=== PATIENT | male | born 1955 | race Caucasian/White ===

== ENCOUNTER 2016-11-18 16:01 | Emergency (ER) | payer MEDICARE ==
[2016-11-18] MEDS ORDERED: NORMAL SALINE 1000 ML 1,000 ML IV ONE ×3 (16:44→20:21)
--- NOTE | 2016-11-18 16:50 | ER Document Report ---
ED Medical Screen (RME) - General Chief Complaint: High Blood Sugar Stated Complaint: BLOOD SUGAR PROBLEM Mode of Arrival: Wheelchair Information source: Patient Notes: 61-year-old male presents to the emergency department complaining of elevated blood glucose. Reports history of type 2 NIDDM. States was referred by primary care provider for blood sugar of 680. Reports associated blurred vision and thirst. Denies chest pain or shortness of breath. I have greeted and performed a rapid initial assessment of this patient. A comprehensive ED assessment and evaluation of the patient, analysis of test results and completion of the medical decision making process will be conducted by additional ED providers. TRAVEL OUTSIDE OF THE [place] IN LAST 30 DAYS: No - Related Data Allergies/Adverse Reactions: No Known Allergies Allergy (Verified 11/18/16 16:35) Past Medical History - Social History Chew tobacco use (# tins/day): No Frequency of alcohol use: None Drug Abuse: None Renal/ Medical History: Reports: Hx Kidney Stones. Denies: Hx Peritoneal Dialysis - Immunizations Hx Diphtheria, Pertussis, Tetanus Vaccination: Yes Physical Exam - Vital signs Vitals: Temp Pulse Resp BP Pulse Ox 97.7 F 86 18 118/60 94 11/18/16 16:30 11/18/16 16:30 11/18/16 16:30 11/18/16 16:30 11/18/16 16:30 - General General appearance: Alert In distress: None - Respiratory Respiratory status: No respiratory distress Course - Vital Signs Vital signs: Temp Pulse Resp BP Pulse Ox 97.7 F 86 18 118/60 94 11/18/16 16:30 11/18/16 16:30 11/18/16 16:30 11/18/16 16:30 11/18/16 16:30
[2016-11-18 17:41] LABS: ABSOLUTE LYMPHOCYTES (AUTO) 1.8 10^3/uL (0.5-4.7); ABSOLUTE MONOCYTES (AUTO) 0.5 10^3/uL (0.1-1.4); ABSOLUTE NEUT (AUTO) 13.4 10^3/uL (1.7-8.2); BASOPHILS % (AUTO) 0.3 % (0-2); HEMATOCRIT 37.7 % (37.9-51.0); HEMOGLOBIN 12.3 g/dL (13.5-17.0); HGB HCT DIFFERENCE -0.8; LYMPHOCYTES % (AUTO) 11.3 % (13-45); MEAN CORPUSCULAR HEMOGLOBIN 29.8 pg (27.0-33.4); MEAN CORPUSCULAR HGB CONC 32.7 g/dL (32.0-36.0); MEAN CORPUSCULAR VOLUME 91 fl (80-97); MONOCYTES % (AUTO) 3.4 % (3-13); RED BLOOD COUNT 4.13 10^6/uL (4.35-5.55); RED CELL DISTRIBUTION WIDTH 16.2 % (11.5-14.0); WHITE BLOOD COUNT 15.8 10^3/uL (4.0-10.5)
[2016-11-18 17:46] LABS: VENOUS BLOOD HCO3 23.5 mmol/L (20-32); VENOUS BLOOD PH 7.36 (7.30-7.42)
--- NOTE | 2016-11-18 18:01 | EKG REPORT ---
SEVERITY:- ABNORMAL ECG - SINUS RHYTHM RIGHT BUNDLE BRANCH BLOCK : Confirmed by: Maricel Eubanks 18-Nov-2016 18:00:06
[2016-11-18 18:02] LABS: ALANINE AMINOTRANSFERASE 36 U/L (21-72); ALBUMIN 3.8 g/dL (3.5-5.0); ALKALINE PHOSPHATASE 127 U/L (38-126); ANION GAP 16 (5-19); ASPARTATE AMINO TRANSFERASE 17 U/L (17-59); BILIRUBIN,TOTAL 1.9 mg/dL (0.2-1.3); BLOOD UREA NITROGEN 35 mg/dL (7-20); CALCIUM 9.8 mg/dL (8.4-10.2); CARBON DIOXIDE 24 mmol/L (22-30); CHLORIDE 90 mmol/L (98-107); CREATININE RESULT 1.56 mg/dL (0.52-1.25); POTASSIUM 4.5 mmol/L (3.6-5.0); SODIUM 130.1 mmol/L (137-145); TOTAL PROTEIN 6.5 g/dL (6.3-8.2)
--- NOTE | 2016-11-18 18:10 | ER Document Report ---
[id number] [id number] BLOOD SUGAR PROBLEM Mode of Arrival: Wheelchair Notes: The patient is a 61-year-old male, past medical history on chronic steroids for viral meningitis in 1999, presents from his primary care physician's office after his blood sugar was found to be in the 600s. Patient is not on any diabetes medication. He is having polyuria and polydipsia. Denies chest pain, shortness of breath, fevers, rash, abdominal pain, diarrhea, constipation, nausea, vomiting or dysuria. TRAVEL OUTSIDE OF THE [place] IN LAST 30 DAYS: No - Related Data Allergies/Adverse Reactions: No Known Allergies Allergy (Verified 11/18/16 16:35) Past Medical History - General Information source: Patient - Social History Smoking Status: Never Smoker Chew tobacco use (# tins/day): No Frequency of alcohol use: None Drug Abuse: None Family History: Reviewed & Not Pertinent Patient has suicidal ideation: No Patient has homicidal ideation: No Renal/ Medical History: Reports: Hx Kidney Stones. Denies: Hx Peritoneal Dialysis - Immunizations Hx Diphtheria, Pertussis, Tetanus Vaccination: Yes Review of Systems - Review of Systems Notes: REVIEW OF SYSTEMS: CONSTITUTIONAL: -fevers, -chills EENT: -eye pain, -difficulty swallowing, -nasal congestion CARDIOVASCULAR:-chest pain, -syncope. RESPIRATORY: -cough, -SOB GASTROINTESTINAL: -abdominal pain, -nausea, -vomiting, -diarrhea GENITOURINARY: -dysuria, -hematuria, +polyuria MUSCULOSKELETAL: -back pain, -neck pain SKIN: -rash or skin lesions. HEMATOLOGIC: -easy bruising or bleeding. LYMPHATIC: -swollen, enlarged glands. NEUROLOGICAL: -altered mental status or loss of consciousness, -headache, - neurologic symptoms PSYCHIATRIC: -anxiety, -depression. ALL OTHER SYSTEMS REVIEWED AND NEGATIVE. Physical Exam - Vital signs Vitals: Temp Pulse Resp BP Pulse Ox 97.7 F 86 18 118/60 94 11/18/16 16:30 11/18/16 16:30 11/18/16 16:30 11/18/16 16:30 11/18/16 16:30 - Notes Notes: PHYSICAL EXAMINATION: GENERAL: Well-appearing, well-nourished and in no acute distress. HEAD: Atraumatic, normocephalic. EYES: Pupils equal round and reactive to light, extraocular movements intact, sclera anicteric, conjunctiva are normal. ENT: nares patent, oropharynx clear without exudates. Dry mucous membranes. NECK: Normal range of motion, supple without lymphadenopathy LUNGS: Breath sounds clear to auscultation bilaterally and equal. No wheezes rales or rhonchi. HEART: Regular rate and rhythm without murmurs ABDOMEN: Soft, nontender, normoactive bowel sounds. No guarding, no rebound. No masses appreciated. EXTREMITIES: Normal range of motion, no pitting or edema. No cyanosis. NEUROLOGICAL: Cranial nerves grossly intact. Normal speech, normal gait. Normal sensory, motor, and reflex exams. PSYCH: Normal mood, normal affect. SKIN: Warm, Dry, normal turgor, no rashes or lesions noted. Course - Re-evaluation Re-evalutation: The patient has hyperglycemia without any evidence of ketoacidosis. This is new onset and most likely caused by his chronic steroid use and recent URI. No signs of infection at this time. Creatinine is at baseline. 11/18/16 19:24 Attempted to call his primary care physician HANNAH Gil , but no answer at this time. 11/18/16 20:03 After 2L NS, patient's blood sugar decreased from 599 to 504. He is tolerating fluids. Will give him another liter of IVF and IV insulin, but he does not want anymore IV fluids, even after explaining that he should. His repeat accucheck is 441. This hyperglycemia is most likely chronic in nature. Will begin patient on glipizide and have him f/u at his PMD for medication adjustment. - Vital Signs Vital signs: Temp Pulse Resp BP Pulse Ox 97.7 F 86 18 118/60 94 11/18/16 16:30 11/18/16 16:30 11/18/16 16:30 11/18/16 16:30 11/18/16 16:30 11/18/16 19:23 - Laboratory Result Diagrams: 11/18/16 17:31 11/18/16 17:31 Laboratory results interpreted by me: 11/18/16 11/18/16 11/18/16 17:31 17:31 18:14 WBC 15.8 H RBC 4.13 L Hgb 12.3 L Hct 37.7 L RDW 16.2 H Seg Neutrophils % 85.0 H Lymphocytes % 11.3 L Absolute Neutrophils 13.4 H Sodium 130.1 L Chloride 90 L BUN 35 H Creatinine 1.56 H Est GFR ( Amer) 55 L Est GFR (Non-Af Amer) 45 L Glucose 599 H* Total Bilirubin 1.9 H Alkaline Phosphatase 127 H Urine Glucose (UA) >=500 H Urine Ketones 20 H Urine Blood SMALL H Ur Leukocyte Esterase LARGE H - EKG Interpretation by Me EKG shows normal: Sinus rhythm, [place], QRS Complexes, ST-T Waves [place]/QRS: RBBB When compared to previous EKG there are: No significant change Discharge - Discharge Clinical Impression: Hyperglycemia Condition: Stable Disposition: HOME, SELF-CARE Additional Instructions: He must have your blood sugar rechecked by her primary care physician and possible medication adjustments. Drink plenty of water. If you're unable to stay hydrated, return to the emergency room. HYPERGLYCEMIA (HIGH BLOOD SUGAR): You have an abnormally high blood sugar. Not all high blood sugar requires long-term treatment. High blood sugar can be due to medications, , or the stress of illness. (These cases are "borderline diabetes.") If the doctor feels your high blood sugar might resolve with time, you may not require treatment now. It's very important that you follow through, to see if the blood sugar returns to normal levels. Uncontrolled high blood sugar leads to early heart disease, strokes, nerve damage, eye damage, and kidney damage. Call the physician if there is faintness, excess sleepiness, or very rapid breathing. DIABETES: You have an abnormally high blood sugar, suspicious for diabetes. Not all high blood sugar requires long-term treatment. High blood sugar can be due to medications, , or the stress of illness. (These cases are "borderline diabetes.") If the doctor feels your high blood sugar might get better with time, you may not require treatment now. It's very important that you follow through. Uncontrolled high blood sugar leads to early heart disease, strokes, nerve damage, eye damage, and kidney damage. All diabetics should follow a diet designed to control the blood sugar. Overweight diabetics should exercise regularly and lose weight. If this is not sufficient to control the blood sugar, pills or insulin shots are necessary. Younger people who develop diabetes almost always require insulin daily. Home testing of blood sugars or urine sugar is required. Diabetic teaching is available to help you figure insulin doses and monitor the blood sugar. Call the physician if there is faintness, excess sleepiness, or very rapid breathing. If hypoglycemia (LOW blood sugar) develops, symptoms are shakiness, weakness, sweating, and confusion. In this case, you should eat or drink something with sugar at once. ORAL HYPOGLYCEMIC MEDICATION: Oral hypoglycemics are medicines that lower blood sugar in diabetics. They are not effective for younger diabetics who require insulin. Some brands are tolbutamide, Orinase, glipizide, Glucotrol, glyburide, DiaBeta, Glynase, and Micronase. Some medications can increase or decrease the effect of Diabinese. Examples are Clofibrate (Atromid-S), phenylbutazone (Butazolidin), aspirin, sulfonamides, Coumadin, allopurinol (Zyloprim), probenecid (Benemid), acetazolamide (Diamox), beta blockers, steroids, estrogens, Indocin, INH, Levothyroxine, nicotinic acid, Diflucan, Dilantin, and thiazide diuretics. Be sure your doctor knows all the medicines you take, and talk to your doctor before making any changes in your medicines. If you develop symptoms of shakiness, sweats, and lightheadedness, your blood sugar may have gone too low. Eat or drink a small amount of sweet food. If symptoms don't go away, call your doctor. FOLLOW-UP CARE: If you have been referred to a physician for follow-up care, call the physician s office for an appointment as you were instructed or within the next two days. If you experience worsening or a significant change in your symptoms, notify the physician immediately or return to the Emergency Department at any time for re-evaluation. Prescriptions: Glipizide [Glipizide ER] 5 mg PO DAILY #30 tab.er.24 Referrals: NOAM MENDEZ NP [Primary Care Provider] - Follow up as needed
[2016-11-18 18:11] LABS: GLUCOSE 599 mg/dL (75-110)
[2016-11-18 18:26] LABS: APPEARANCE,URINE CLEAR; BILIRUBIN,URINE NEGATIVE (NEGATIVE); GLUCOSE, URINE >=500 mg/dL (NEGATIVE); KETONES,URINE 20 mg/dL (NEGATIVE); LEUKOCYTE ESTERASE,URINE LARGE (NEGATIVE); NITRITE,URINE NEGATIVE (NEGATIVE); PROTEIN,URINE NEGATIVE (NEGATIVE); URINE SPECIFIC GRAVITY 1.011; UROBILINOGEN,URINE NEGATIVE mg/dL (<2.0)
[2016-11-18] MEDS ORDERED: INSULIN REG, HUMAN 100 UNIT/ML 3 ML VIAL (PYX) IV ONE (19:26)
[2016-11-18] MEDS ORDERED: CEFTRIAXONE INJ 1000 MG VIAL IV ONE (21:23)
[2016-11-19 03:50] VITALS: BP 115/65
== END 2016-11-19 03:25 | disposition home or self-care (01) ==
LOC: ER 16:01
DX: E11.65 Type 2 diabetes mellitus with hyperglycemia (principal); N39.0 Urinary tract infection, site not specified; R35.8 Other polyuria; R63.1 Polydipsia; I45.10 Unspecified right bundle-branch block
CPT/HCPCS: 93005; 99285; 96361; 96365; 36415; 82962; 85025; 80053; 81001; 82803; 93010; J0696; J7030; J1815

== ENCOUNTER 2018-03-20 09:56 | Day surgery (SDC) | payer MEDICARE ==
[~2018-03-20 09:56] MED LIST: BUPIVACAINE HCL 0.75% INJ/PF (7.5 MG/1 ML) 10 ML SDV OS PRN; KETOROLAC TROMETHAMINE 0.45% 4 DROP/0.4 ML DROPERETTE OS PRN; LIDOCAINE 4% INJ/PF (40 MG/ML) 5 ML AMPUL OS PRN
[2018-03-20] MEDS ORDERED: EPINEPHRINE INJ/PF 1 MG/1 ML AMPULE ONE (10:18)
[2018-03-20] MEDS ORDERED: CHONDR SU A NA/HYALUR INTRAOC KIT (SURGICARE) ONE (10:19)
[2018-03-20] MEDS ORDERED: LIDOCAINE 1% INJ-PF (10 MG/ML) 30 ML SDV ONE (10:19)
[2018-03-20] MEDS: TETRACAINE HCL 0.5% OPH SOLN 0.6 ML DROPERETTE OS PRN ×2 (10:55→11:22)
[2018-03-20] MEDS: TROPICAMIDE 1% OPH SOLN 3 ML OS PRN ×3 (10:56→11:21)
[2018-03-20] MEDS: BESIFLOXACIN HCL 0.6% OPH SUSP 5 ML BOTTLE OS PRN ×3 (10:56→12:07)
[2018-03-20] MEDS: CYCLOPENTOLATE 0.2%/PHENYLEPHRINE 1% OPH SOLN 2 ML OS PRN ×3 (10:56→11:21)
[2018-03-20] MEDS ORDERED: MIDAZOLAM 2 MG/2 ML INJ ONE ×2 (11:11→12:13)
[2018-03-20] MEDS ORDERED: FENTANYL CITRATE INJ/PF 100 MCG/2 ML AMPUL ONE ×2 (11:12→11:35)
--- NOTE | 2018-03-20 17:15 | [facility] OPERATIVE REPORT E ---
[facility] Operative Report NAME: MARY MEDINA AGE: 63Y DATE OF SURGERY: 03/20/2018 ROOM: PREOPERATIVE DIAGNOSIS: CATARACT, LEFT EYE. POSTOPERATIVE DIAGNOSIS: CATARACT, LEFT EYE. OPERATION: Phacoemulsification with posterior chamber intraocular lens, left eye. SURGEON: STARLA JONES M.D. ANESTHESIA: Topical with MAC. INDICATIONS FOR SURGERY: Difficulty driving and reading. Best corrected visual acuity, 20/70. PROCEDURE: The patient was brought to the Operating Room and placed on the operative table. Following tetracaine drops, topical anesthesia was administered. This consisted of instrument wipe pledgets soaked in a solution of 4% Xylocaine mixed with 0.75% Marcaine in a 1:2 ratio. A 2 x 1 cm pledget was placed in the superior fornix. A 1 x 1 cm pledget was placed in the inferior fornix. The eye was patched shut for 5 minutes. The patch was removed. The eye was sterilely prepped and draped in the usual manner. Lid speculum was placed in the eye. The pledgets were removed. 4-0 black silk sutures were placed around the superior and the inferior rectus muscles to be used as traction. A conjunctival peritomy was made at the 10 o'clock position. Hemostasis was obtained with bipolar cautery. A posterior limbal groove was created using a crescent knife and dissected anteriorly towards the cornea. A sharp point blade was used to create a paracentesis site at the 2 o'clock position. A 2.4 mm keratome was used to enter the anterior chamber through the groove. Viscoelastic was injected into the anterior chamber. An anterior capsulotomy was performed using Utrata forceps in a capsulorrhexis fashion. Hydrodissection and hydrodelineation were performed. Phacoemulsification was performed in [id number] technique. A total of 55 seconds phaco time was used. Following this, the I/A unit was used to remove residual cortex. Viscoelastic was injected into the capsular bag. Intraocular lens model [id number], 14.0 diopters, serial number [id number] was placed in the capsular bag. The I/A unit was used to remove residual viscoelastic. The wound was seen to be watertight under high and low pressure, and no sutures were placed. The intraocular lens was well centered. The pressure was adjusted in the eye to normal pressure. The 4-0 black silk sutures and lid speculum were removed. The eye was shielded after Besivance drops were placed. The patient tolerated the procedure well and was sent to the Recovery Room in good condition. DICTATING PHYSICIAN: STARLA JONES M.D. DICTATING PHYSICIAN: STARLA JONES M.D. [id number] PHY#: [id number] ID: [id number] JOB#: [id number] ACCT: [id number] cc:STARLA JONES M.D. >
--- NOTE | 2018-03-20 17:15 | [facility] DISCHARGE SUMMARY E ---
[facility] Discharge Summary NAME: MARY MEDINA AGE: 63Y ADMITTED: 03/20/2018 DISCHARGED: 03/20/2018 HOSPITAL COURSE: The patient is a 63-year-old gentleman who underwent uneventful cataract surgery with intraocular lens implant, left eye, on 03/20/2018. He will be discharged to home. He was instructed to resume preoperative medications, take Tylenol as needed for discomfort, keep his eye shielded, to use Besivance, Durezol and Ilevro at 3 p.m. and 8 p.m. and follow up in my office in 1 day. DICTATING PHYSICIAN: STARLA JONES M.D. [id number] PHY#: [id number] ID: [id number] JOB#: [id number] ACCT: [id number] cc:STARLA JONES M.D. >
== END 2018-03-20 13:07 | disposition home or self-care (01) ==
LOC: SC 09:56
PROVIDERS: ATTEND Ophthalmology
DX: H25.813 Combined forms of age-related cataract, bilateral (principal); E11.3291 Type 2 diabetes mellitus with mild nonproliferative diabetic retinopathy without macular edema, right eye; H53.2 Diplopia; H50.15 Alternating exotropia; H04.123 Dry eye syndrome of bilateral lacrimal glands; I10 Essential (primary) hypertension; E78.00 Pure hypercholesterolemia, unspecified; J44.9 Chronic obstructive pulmonary disease, unspecified; M19.90 Unspecified osteoarthritis, unspecified site; Z79.51 Long term (current) use of inhaled steroids; F12.90 Cannabis use, unspecified, uncomplicated; Z79.899 Other long term (current) drug therapy; Z79.84 Long term (current) use of oral hypoglycemic drugs; Z79.4 Long term (current) use of insulin
CPT/HCPCS: 66984; 82962; V2632; J2250; J3490 ×4; A9270; J0171; J3010; 142

== ENCOUNTER 2018-04-10 09:44 | Day surgery (SDC) | payer MEDICARE ==
[~2018-04-10 09:44] MED LIST changes: +BUPIVACAINE HCL 0.75% INJ/PF (7.5 MG/1 ML) 10 ML SDV OD PRN; -BUPIVACAINE HCL 0.75% INJ/PF (7.5 MG/1 ML) 10 ML SDV OS PRN; +KETOROLAC TROMETHAMINE 0.45% 4 DROP/0.4 ML DROPERETTE OD PRN; -KETOROLAC TROMETHAMINE 0.45% 4 DROP/0.4 ML DROPERETTE OS PRN; +LIDOCAINE 4% INJ/PF (40 MG/ML) 5 ML AMPUL OD PRN; -LIDOCAINE 4% INJ/PF (40 MG/ML) 5 ML AMPUL OS PRN
[2018-04-10] MEDS ORDERED: EPINEPHRINE INJ/PF 1 MG/1 ML AMPULE ONE (10:16)
[2018-04-10] MEDS ORDERED: LIDOCAINE 1% INJ-PF (10 MG/ML) 30 ML SDV ONE (10:17)
[2018-04-10] MEDS ORDERED: CHONDR SU A NA/HYALUR INTRAOC KIT (SURGICARE) ONE (10:17)
[2018-04-10] MEDS: TROPICAMIDE 1% OPH SOLN 3 ML OD PRN ×3 (10:27→10:47)
[2018-04-10] MEDS: BESIFLOXACIN HCL 0.6% OPH SUSP 5 ML BOTTLE OD PRN ×4 (10:27→11:54)
[2018-04-10] MEDS: CYCLOPENTOLATE 0.2%/PHENYLEPHRINE 1% OPH SOLN 2 ML OD PRN ×3 (10:27→10:47)
[2018-04-10] MEDS: TETRACAINE HCL 0.5% OPH SOLN 0.6 ML DROPERETTE OD PRN ×2 (10:28→10:47)
[2018-04-10] MEDS ORDERED: MIDAZOLAM 2 MG/2 ML INJ ONE ×2 (10:51)
--- NOTE | 2018-04-10 12:05 | [facility] DISCHARGE SUMMARY E ---
[facility] Discharge Summary NAME: MARY MEDINA AGE: 63Y ADMITTED: 04/10/2018 DISCHARGED: 04/10/2018 HOSPITAL COURSE: The patient is a 63-year-old gentleman who underwent uneventful cataract extraction with intraocular lens implant right eye on 04/10/2018. He will be discharged to home. He is instructed to resume preoperative medications, take Tylenol as needed for discomfort, to keep his eye shielded, to use Besivance, Durezol, and Ilevro at 3 p.m. and 8 p.m., and to follow up in my office in 1 day. DICTATING PHYSICIAN: STARLA JONES M.D. [id number] PHY#: [id number] ID: [id number] JOB#: [id number] ACCT: [id number] cc:STARLA JONES M.D. >
--- NOTE | 2018-04-10 12:06 | [facility] OPERATIVE REPORT E ---
[facility] Operative Report NAME: MARY MEDINA AGE: 63Y DATE OF SURGERY: 04/10/2018 ROOM: PREOPERATIVE DIAGNOSIS: Cataract, right eye. POSTOPERATIVE DIAGNOSIS: Cataract, right eye. PROCEDURE PERFORMED: Phacoemulsification with posterior chamber intraocular lens, right eye. SURGEON: STARLA JONES M.D. ANESTHESIA: Topical with MAC. INDICATIONS FOR SURGERY: Anisotropy following cataract surgery on the left eye. Best corrected visual acuity 20/50. PROCEDURE: The patient was brought to the Operating Room and placed on the operative table. Following tetracaine drops, topical anesthesia was administered. This consisted of instrument wipe pledgets soaked in a solution of 4% Xylocaine mixed with 0.75% Marcaine in a 1:2 ratio. A 2 x 1 cm pledget was placed in the superior fornix. A 1 x 1 cm pledget was placed in the inferior fornix. The eye was patched shut for 5 minutes. The patch was removed. The eye was sterilely prepped and draped in the usual manner. Lid speculum was placed in the eye. The pledgets were removed. 4-0 black silk sutures were placed around the superior and the inferior rectus muscles to be used as traction. A conjunctival peritomy was made at the 10 o'clock position. Hemostasis was obtained with bipolar cautery. A posterior limbal groove was created using a crescent knife and dissected anteriorly towards the cornea. A sharp point blade was used to create a paracentesis site at the 2 o'clock position. A 2.4 mm keratome was used to enter the anterior chamber through the groove. Viscoelastic was injected into the anterior chamber. An anterior capsulotomy was performed using Utrata forceps in a capsulorrhexis fashion. Hydrodissection and hydrodelineation were performed. Phacoemulsification was performed in [id number]-ihm-[id number] technique. A total of 52 seconds phaco time was used. Following this, the I/A unit was used to remove residual cortex. Viscoelastic was injected into the capsular bag. Intraocular lens model [id number], 14.0 diopters, serial number [id number] was placed in the capsular bag. The I/A unit was used to remove residual viscoelastic. The wound was seen to be watertight under high and low pressure, and no sutures were placed. The intraocular lens was well centered. The pressure was adjusted in the eye to normal pressure. The 4-0 black silk sutures and lid speculum were removed. The eye was shielded after Besivance drops were placed. The patient tolerated the procedure well and was sent to the Recovery Room in good condition. DICTATING PHYSICIAN: STARLA JONES M.D. [id number] PHY#: [id number] ID: [id number] JOB#: [id number] ACCT: [id number] cc:STARLA JONES M.D. >
== END 2018-04-10 12:31 | disposition home or self-care (01) ==
LOC: SC 09:44
PROVIDERS: ATTEND Ophthalmology
PROC: 08RJ3JZ Replacement of Right Lens with Synthetic Substitute, Percutaneous Approach (ICD-10-PCS; principal; 2018-04-10 11:00)
DX: H25.811 Combined forms of age-related cataract, right eye (principal); I10 Essential (primary) hypertension; E11.40 Type 2 diabetes mellitus with diabetic neuropathy, unspecified
CPT/HCPCS: 82962; 66984; V2632; J2250; J3490 ×4; A9270; J0171; 142

== ENCOUNTER 2018-06-30 17:48 | Emergency (ER) | payer MEDICARE ==
[2018-06-30] MEDS ORDERED: VALACYCLOVIR HCL 500 MG TABLET PO ONE (19:18)
[2018-06-30] MEDS ORDERED: HYDROMORPHONE HCL INJ/PF 2 MG/ML AMPULE IM ONE (19:18)
[2018-06-30] MEDS ORDERED: GABAPENTIN 300 MG CAPSULE PO ONE (19:19)
[2018-06-30] MEDS ORDERED: TETRACAINE HCL 0.5% OPH SOLN 4 ML OD ONE (19:32)
--- NOTE | 2018-06-30 20:01 | ER Document Report ---
ED General - General Chief Complaint: Arm Pain Stated Complaint: ARM/SIDE PAIN Time Seen by Provider: 06/30/18 18:48 Notes: Patient is a 63 year old male that presents to the ED for chief complaint of painful rash on arm and back. Patient reports that he first notice this later on of this week and it has progressed and has been worse. The rash started on the back and right arm and has wrapped toward the front and he is now feeling like his scalp is involved as well. He denies having shingles in the past. Reports being on corticosteroids for a very long time due to adrenal insufficiency. Past Medical History: HTN, peripheral edema, adrenal insufficiency, obesity, hld , DM Past Surgical History: [facility] Social History: Denies tobacco use, admits to rare ETOH use, denies illicit drug use. Family History: Reviewed and noncontributory for presenting illness Allergies: Reviewed, see documented allergy list. REVIEW OF SYSTEMS: Unless otherwise stated in this report the patient's positive and negative responses for review of systems for constitutional, eyes, ENT, cardiovascular, respiratory, gastrointestinal, neurological, genitourinary, musculoskeletal, and integumentary systems and related systems to the presenting problem are either as stated in the HPI or were not pertinent or were negative for the symptoms and/or complaints related to the presenting medical problem. PHYSICAL EXAMINATION: Vital signs reviewed, nursing noted reviewed. GENERAL: Obese, chronically ill appearing male, and appears uncomfortable HEAD: Atraumatic, normocephalic. tenderness with palpation of the left scalp. EYES: Eyes appear normal, extraocular movements intact, sclera anicteric, conjunctiva are normal. PERRLA. Slit Lamp exam: No dendrites noted with fluorescein dye, no flare, no evidence of corneal abrasion, or uveitis. ENT: nares patent, oropharynx clear without exudates. Moist mucous membranes. No rash noted on the face or scalp. TMs appeared normal bilaterally. NECK: Normal range of motion, supple without lymphadenopathy LUNGS: Breath sounds clear to auscultation bilaterally and equal. No wheezes rales or rhonchi. HEART: Regular rate and rhythm without murmurs ABDOMEN: Soft, nontender, normoactive bowel sounds. No rebound, guarding, or rigidity. No masses appreciated. EXTREMITIES: Nontender, good range of motion, bilateral LE edema with chronic stasis changes noted. NEUROLOGICAL: No focal neurological deficits. Moves all extremities spontaneously Motor and sensory grossly intact on exam. CN tested intact, no facial numbness or change in sensation noted on exam. PSYCH: Normal mood, normal affect. SKIN: Warm, Dry, normal turgor, rash noted on the right back wrapping anteriorly to the right chest and includes the right upper arm, with crusting vesicles most consistent with herpes zoster infection. TRAVEL OUTSIDE OF THE [place] IN LAST 30 DAYS: No - Related Data Allergies/Adverse Reactions: No Known Allergies Allergy (Verified 06/30/18 17:50) Past Medical History - Social History Smoking Status: Never Smoker Family History: Reviewed & Not Pertinent Patient has suicidal ideation: No Patient has homicidal ideation: No - Past Medical History Cardiac Medical History: Reports: Hx Hypercholesterolemia, Hx Hypertension Denies: Hx Heart Attack Pulmonary Medical History: Denies: Hx Asthma Neurological Medical History: Denies: Hx Cerebrovascular Accident, Hx Seizures Endocrine Medical History: Reports: Hx Diabetes Mellitus Type 2 Renal/ Medical History: Reports: Hx Kidney Stones. Denies: Hx Peritoneal Dialysis GI Medical History: Denies: Hx Hepatitis, Hx Hiatal Hernia, Hx Ulcer Infectious Medical History: Denies: Hx Hepatitis Past Surgical History: Reports: Hx Cardiac Catheterization, Hx Orthopedic Surgery - Rt carpal tunnel, Hx Testicular Surgery - Unilat removal. Denies: Hx Pacemaker. Comment Only: Hx Open Heart Surgery - ABLATION - Immunizations Hx Diphtheria, Pertussis, Tetanus Vaccination: Yes Physical Exam - Vital signs Vitals: Temp Pulse Resp BP Pulse Ox 99.2 F 92 22 H 107/62 97 06/30/18 17:56 06/30/18 17:56 06/30/18 17:56 06/30/18 17:56 06/30/18 17:56 Course - Re-evaluation Re-evalutation: Patient seen and examined. Vital signs reviewed. His clinical exam was most consistent with herpes zoster infection. Slit lamp performed and negative for dendritic lesions. Patient started on valacyclovir 1000mg, neurontin 300mg, and given an IM dilaudid 1mg infection for acute pain relief. Patent educated on the course of shingles, and prescribed both valacyclovir and neurontin for 7 days, and advised to follow-up with their PCP which he was agreeable too. Patient discharged to home in stable and improved condition. - Vital Signs Vital signs: Temp Pulse Resp BP Pulse Ox 97.8 F 96 24 H 111/63 97 06/30/18 20:12 06/30/18 20:12 06/30/18 20:12 06/30/18 20:12 06/30/18 20:12 Discharge - Discharge Clinical Impression: Shingles Qualifiers: Herpes zoster complications: without complications Qualified Code(s): B02.9 - Zoster without complications Condition: Stable Disposition: HOME, SELF-CARE Instructions: Shingles ([facility]) Additional Instructions: Please return to the emergency department if you have any worsening, or concern of your symptoms. Please return to the emergency department if you develop chest pain, difficulty breathing, severe abdominal pain, or ongoing vomiting. Please follow-up with your primary care physician in 2-3 days and any other recommended physicians. If prescribed, take all medications as directed. If you have any questions or concerns do not hesitate to return the emergency department for evaluation. Prescriptions: Gabapentin [Neurontin 300 mg Capsule] 300 mg PO TID #30 cap Valacyclovir HCl [Valacyclovir] 1,000 mg PO TID #21 tablet Referrals: NOAM MENDEZ NP [Primary Care Provider] - Follow up in 3-5 days
[2018-06-30 20:18] VITALS: BP 111/63
== END 2018-06-30 20:17 | disposition home or self-care (01) ==
LOC: ER 17:48
DX: B02.9 Zoster without complications (principal); I10 Essential (primary) hypertension; E11.9 Type 2 diabetes mellitus without complications; E66.9 Obesity, unspecified; E27.40 Unspecified adrenocortical insufficiency; Z79.52 Long term (current) use of systemic steroids
CPT/HCPCS: 99283; 96372; A9270 ×2; J1170; J3490

== ENCOUNTER 2018-09-07 14:40 | Inpatient (IN) | payer MEDICARE ==
[2018-09-07] MEDS ORDERED: IPRATROPIUM/ALBUTEROL 0.5-2.5 MG/3 ML AMPUL NEB ONE (15:37)
[2018-09-07] MEDS ORDERED: ALBUTEROL SULFATE 0.083% NEB 2.5 MG/3 ML AMPUL NEB ONE (15:37)
[2018-09-07 15:47] LABS: VENOUS BLOOD BASE EXCESS -1.7 mmol/L; VENOUS BLOOD HCO3 24.5 mmol/L (20-32); VENOUS BLOOD PCO2 47.9 mmHg (35-63); VENOUS BLOOD PH 7.33 (7.30-7.42)
[2018-09-07 15:54] LABS: INTERNATIONAL RATION (INR) 1.21; PROTHROMBIN TIME 15.9 SEC (11.4-15.4)
--- NOTE | 2018-09-07 15:54 | ER Document Report ---
ED General - General Chief Complaint: Leg Swelling Stated Complaint: LEG PAIN Time Seen by Provider: 09/07/18 15:17 Mode of Arrival: Stretcher Information source: Patient, Relative TRAVEL OUTSIDE OF THE [place] IN LAST 30 DAYS: No - HPI Patient complains to provider of: Lower extremity redness, swelling, pain, decreased p.o. intake Onset: Last week Onset/Duration: Gradual, Persistent Quality of pain: Fullness, Pressure Severity: Moderate Pain Level: 3 Associated symptoms: Productive cough, Leg swelling Notes: Patient is a 63-year-old male with a history of multiple medical problems, brought to the emergency room by EMS for bilateral lower extremity redness with swelling, as well as weeping, decreased p.o. intake times 7 days, inability to pass urine times 2 days, wheezing, congestion, productive cough, patient denies chest pain or shortness of breath, he does appear somewhat confused on examination as he is slow to respond to my questioning and responded inappropriately at times as well, at bedside reports that she is his main golf starter and ranger, he has had worsening of wounds and swelling to his lower extremities over the past week, has developed a decubitus ulcer as well - Related Data Allergies/Adverse Reactions: No Known Allergies Allergy (Verified 06/30/18 17:50) Past Medical History - General Information source: Patient, Relative - Social History Smoking Status: Unknown if Ever Smoked Family History: Reviewed & Not Pertinent Patient has suicidal ideation: No Patient has homicidal ideation: No - Past Medical History Cardiac Medical History: Reports: Hx Hypercholesterolemia, Hx Hypertension Denies: Hx Heart Attack Pulmonary Medical History: Denies: Hx Asthma Neurological Medical History: Denies: Hx Cerebrovascular Accident, Hx Seizures Endocrine Medical History: Reports: Hx Diabetes Mellitus Type 2 Renal/ Medical History: Reports: Hx Kidney Stones. Denies: Hx Peritoneal Dialysis GI Medical History: Denies: Hx Hepatitis, Hx Hiatal Hernia, Hx Ulcer Infectious Medical History: Denies: Hx Hepatitis Past Surgical History: Reports: Hx Cardiac Catheterization, Hx Orthopedic Surgery - Rt carpal tunnel, Hx Testicular Surgery - Unilat removal. Denies: Hx Pacemaker. Comment Only: Hx Open Heart Surgery - ABLATION - Immunizations Hx Diphtheria, Pertussis, Tetanus Vaccination: Yes Review of Systems - Review of Systems Constitutional: See HPI EENT: No symptoms reported Cardiovascular: No symptoms reported Respiratory: No symptoms reported Gastrointestinal: See HPI Genitourinary: No symptoms reported Male Genitourinary: No symptoms reported Musculoskeletal: See HPI Skin: See HPI Hematologic/Lymphatic: No symptoms reported Neurological/Psychological: See HPI -: Yes All other systems reviewed and negative Physical Exam - Vital signs Vitals: Resp 18 09/07/18 15:56 - General General appearance: Other - Somnolent but arousable - HEENT Head: Normocephalic, Atraumatic Eyes: Normal Conjunctiva: Normal Extraocular movements intact: Yes Eyelashes: Normal Pupils: PERRL Mucous membranes: Dry - Respiratory Chest status: Nontender Breath sounds: Nonproductive cough, Wheezing Chest palpation: Normal - Cardiovascular Rhythm: Regular Heart sounds: Normal auscultation Murmur: No - Abdominal Inspection: Normal Distension: Distended, Distended bladder Bowel sounds: Normal Tenderness: Tender - Suprapubic tenderness and fullness Organomegaly: No organomegaly - Extremities General upper extremity: Normal inspection, Nontender, Normal color, Normal ROM , Normal temperature General lower extremity: No: Emy's sign Notes: Bilateral lower extremities with erythema, pitting edema, tenderness to palpate , shallow ulcerations with scabbing and weeping - Neurological Neuro grossly intact: Yes Cognition: Normal Orientation: AAOx4 Sawyer Coma Scale Eye Opening: To Voice Crow Coma Scale Verbal: Confused Crow Coma Scale Motor: Obeys Commands Sawyer Coma Scale Total: 13 Speech: Normal Sensory: Normal - Skin Skin Temperature: Warm Skin Moisture: Dry Skin Color: Pale Course - Re-evaluation Re-evalutation: 09/07/18 16:26 A call was placed to on-call nephrology, left [facility] requesting call back 09/07/18 16:35 Patient was discussed with nephrology, Dr. Rudd, who recommends IV fluid hydration, she will consult on patient, ULISES likely secondary to acute dehydration 09/07/18 17:46 Patient was discussed with hospitalist who agrees to admit for further evaluation and treatment, plan was discussed with patient and at bedside who are in agreement as well - Vital Signs Vital signs: Temp Pulse Resp BP Pulse Ox 18 141/113 H 97 09/07/18 17:02 09/07/18 17:02 09/07/18 17:02 - Laboratory Result Diagrams: 09/07/18 15:23 09/07/18 15:23 Laboratory results interpreted by me: 09/07/18 09/07/18 09/07/18 15:23 15:23 15:23 WBC 24.7 H RBC 3.52 L Hgb 10.8 L Hct 32.2 L RDW 16.4 H Plt Count 544 H Seg Neuts % (Manual) 85 H Lymphocytes % (Manual) 7 L Abs Neuts (Manual) 21.0 H Abs Monocytes (Manual) 2.0 H PT 15.9 H Sodium 122.8 L Potassium 5.3 H Chloride 74 L Anion Gap 25 H BUN 108 H Creatinine 4.84 H Est GFR ( Amer) 15 L Est GFR (Non-Af Amer) 12 L Glucose 468 H* Lactic Acid Total Bilirubin 2.0 H Direct Bilirubin 1.3 H Total Protein 5.8 L Albumin 3.1 L Urine Protein Urine Glucose (UA) Urine Blood Ur Leukocyte Esterase 09/07/18 09/07/18 15:23 16:23 WBC RBC Hgb Hct RDW Plt Count Seg Neuts % (Manual) Lymphocytes % (Manual) Abs Neuts (Manual) Abs Monocytes (Manual) PT Sodium Potassium Chloride Anion Gap BUN Creatinine Est GFR ( Amer) Est GFR (Non-Af Amer) Glucose Lactic Acid 4.3 H Total Bilirubin Direct Bilirubin Total Protein Albumin Urine Protein 30 H Urine Glucose (UA) >=500 H Urine Blood LARGE H Ur Leukocyte Esterase LARGE H - Diagnostic Test Radiology reviewed: Image reviewed, Reports reviewed Critical Care Note - Critical Care Note Total time excluding time spent on procedures (mins): 40 Comments: Patient with sepsis, altered mental status, acute kidney injury, requiring multiple evaluations, discussions with patient and family member as well as admission to the ICU Discharge - Discharge Clinical Impression: Acute kidney injury, Hyperglycemia Sepsis Qualifiers: Sepsis type: sepsis due to unspecified organism Qualified Code(s): A41.9 - Sepsis, unspecified organism Lower extremity cellulitis Qualifiers: Laterality: unspecified laterality Qualified Code(s): L03.119 - Cellulitis of unspecified part of limb Condition: Critical Disposition: ADMITTED INPATIENT Admitting Provider: Hospitalist Unit Admitted: ICU
[2018-09-07 16:01] LABS: HEMATOCRIT 32.2 % (37.9-51.0); HEMOGLOBIN 10.8 g/dL (13.5-17.0); MEAN CORPUSCULAR HEMOGLOBIN 30.8 pg (27.0-33.4); MEAN CORPUSCULAR HGB CONC 33.6 g/dL (32.0-36.0); MEAN CORPUSCULAR VOLUME 92 fl (80-97); PLATELET COUNT 544 10^3/uL (150-450); RED BLOOD COUNT 3.52 10^6/uL (4.35-5.55); RED CELL DISTRIBUTION WIDTH 16.4 % (11.5-14.0); WHITE BLOOD COUNT 24.7 10^3/uL (4.0-10.5)
[2018-09-07 16:03] LABS: ALANINE AMINOTRANSFERASE 42 U/L (21-72); ALBUMIN 3.1 g/dL (3.5-5.0); ALKALINE PHOSPHATASE 125 U/L (38-126); ASPARTATE AMINO TRANSFERASE 38 U/L (17-59); BILIRUBIN,DIRECT 1.3 mg/dL (0.0-0.4); BLOOD UREA NITROGEN 108 mg/dL (7-20); CALCIUM 8.7 mg/dL (8.4-10.2); POTASSIUM 5.3 mmol/L (3.6-5.0); TOTAL PROTEIN 5.8 g/dL (6.3-8.2)
[2018-09-07] MEDS ORDERED: NORMAL SALINE 1000 ML 1,000 ML IV ONE (16:03)
[2018-09-07 16:09] LABS: CARBON DIOXIDE 24 mmol/L (22-30); CHLORIDE 74 mmol/L (98-107); SODIUM 122.8 mmol/L (137-145)
[2018-09-07 16:15] LABS: ANION GAP 25 (5-19)
[2018-09-07 16:18] LABS: ABSOLUTE LYMPHOCYTES# (MANUAL) 1.7 10^3/uL (0.5-4.7); BASOPHILS % (MANUAL) 0 % (0-2); EOSINOPHILS % (MANUAL) 0 % (0-6); GLUCOSE 468 mg/dL (75-110); LYMPHOCYTES % (MANUAL) 7 % (13-45); MONOCYTES % (MANUAL) 8 % (3-13); SEGMENTED NEUTROPHILS % (MAN) 85 % (42-78); TOTAL CELLS COUNTED 100
[2018-09-07 16:20] LABS: ANISOCYTOSIS 1+; HYPOCHROMASIA SLIGHT; OVALOCYTES SLIGHT; POIKILOCYTOSIS SLIGHT; POLYCHROMASIA SLIGHT
[2018-09-07 16:21] LABS: PLATELET COMMENT INCREASED; PLATELET LARGE PRESENT
--- NOTE | 2018-09-07 16:26 | RADIOLOGY REPORT (SQ) ---
EXAM DESCRIPTION: CHEST SINGLE VIEW COMPLETED DATE/TIME: 09/07/2018 4:16 pm REASON FOR STUDY: sob COMPARISON: 02/26/2014 EXAM PARAMETERS: NUMBER OF VIEWS: One view. TECHNIQUE: Single frontal radiographic view of the chest acquired. RADIATION DOSE: NA LIMITATIONS: None. FINDINGS: LUNGS AND PLEURA: No opacities, masses or pneumothorax. No pleural effusion. MEDIASTINUM AND HILAR STRUCTURES: No masses. Contour normal. HEART AND VASCULAR STRUCTURES: Heart normal in size. Normal vasculature. BONES: No acute findings. HARDWARE: None in the chest. OTHER: No other significant finding. IMPRESSION: NO ACUTE RADIOGRAPHIC FINDING IN THE CHEST. TECHNICAL DOCUMENTATION: JOB ID: [id number] [employer]- All Rights Reserved Reading location - IP/workstation name: [email or web address]
[2018-09-07] MEDS ORDERED: VANCOMYCIN HCL INJ 1000 MG VIAL IV ONE (16:28)
[2018-09-07] MEDS ORDERED: PIPERACILLIN/TAZOBACTAM 2.25 GM VIAL IV ONE (16:28)
[2018-09-07 17:04] LABS: APPEARANCE,URINE SLIGHTLY-CLOUDY; BILIRUBIN,URINE NEGATIVE (NEGATIVE); COLOR,URINE YELLOW; GLUCOSE, URINE >=500 mg/dL (NEGATIVE); KETONES,URINE NEGATIVE (NEGATIVE); LEUKOCYTE ESTERASE,URINE LARGE (NEGATIVE); NITRITE,URINE NEGATIVE (NEGATIVE); PROTEIN,URINE 30 mg/dL (NEGATIVE); URINE SPECIFIC GRAVITY 1.012; UROBILINOGEN,URINE NEGATIVE mg/dL (<2.0)
[2018-09-07] MEDS ORDERED: NORMAL SALINE IV ONE (17:37)
[2018-09-07] MEDS ORDERED: ACETAMINOPHEN 325 MG TABLET PO PRN (17:41)
[2018-09-07] MEDS ORDERED: OXYCODONE-ACETAMINOPHEN 5-325 MG TABLET PO PRN (17:41)
[2018-09-07] MEDS ORDERED: ONDANSETRON HCL INJ/PF 4 MG/2 ML SDV IV PRN (17:48)
[2018-09-07] MEDS ORDERED: IPRATROPIUM/ALBUTEROL 0.5-2.5 MG/3 ML AMPUL NEB PRN (17:57)
[2018-09-07] MEDS ORDERED: VANCOMYCIN HCL 0 MG in DEXTROSE 5%-WATER 250 ML IV NR (18:00)
[2018-09-07] MEDS ORDERED: PHARMACY COMMUNICATION ORDER MC NR (18:00)
[2018-09-07] MEDS ORDERED: PIPERACILLIN SODIUM/TAZOBACTAM 4.5 GM in NORMAL SALINE 100 ML IV SCH (18:00)
[2018-09-07] MEDS ORDERED: GLUCAGON,HUMAN RECOMB 1 MG INJ IM PRN (18:25)
[2018-09-07] MEDS ORDERED: DEXTROSE 40% GEL 15 GM TUBE PO PRN ×2 (18:25)
[2018-09-07] MEDS ORDERED: DEXTROSE 50%-WATER 25 GM/50 ML DISP.SYRIN IV PRN ×2 (18:25)
--- NOTE | 2018-09-07 18:52 | PDOC H&P ---
History of Present Illness Admission Date/PCP: 09/07/18 17:13 NOAM MENDEZ NP Patient complains of: shortness of breath History of Present Illness: MARY MEDINA is a 63 year old male with a past medical history of hypertension, hyperlipidemia, diabetes and others that he is not aware of, who presented to the ED for not feeling so well for the last 1 week. Patient is a very poor historian. His who was sitting next to him is also a poor historian. As per patient he was not feeling so well and has not been eating or drinking as much fluid in the last week. states that patient has been sitting on the recliner for the past 1 week without getting out off the recliner at all. Patient's states that he leads a sedentary life and does not get out of the recliner normally. Patient's is primarily the historian. She states that he has been having swelling of his legs for months now and his PCP has been trying to manage this. She states that he has developed a redness within the last 1-2 weeks that has been worsening. States that she had kept it wrapped and has been cleaning it to provide local care. Patient had asked patient to go to the emergency room but he did not want to come. Patient also tells me that he does not want to come to the emergency room or go to doctors for follow-up. They also tell me that he has not been eating or drinking as well and tells me that he has not voided in the last 4-5 days. His wanted to bring him to the hospital but he did not want to come. Patient states that he has not voided for over a week. They have not checked his temperature at the house so they are not aware of any fevers at home. Normal patient or is able to tell me about his medications that he takes at home. Past Medical History Cardiac Medical History: Reports: Hyperlipidema, Hypertension Denies: Myocardial Infarction Pulmonary Medical History: Denies: Asthma Neurological Medical History: Denies: Seizures Endocrine Medical History: Reports: Diabetes Mellitus Type 2 GI Medical History: Denies: Hepatitis, Hiatal Hernia Hematology: Denies: Anemia, Sickle Cell Disease Past Surgical History Past Surgical History: Reports: Cardiac Catheterization, Orthopedic Surgery - Rt carpal tunnel Denies: Pacemaker Social History Information Source: Patient, Relative - Lives with: Spouse/Significant other Smoking Status: Unknown if Ever Smoked - Advance Directive Resuscitation Status: Full Code Family History Family History: Reviewed & Not Pertinent Parental Family History Reviewed: No - Patient is unaware of family history Children Family History Reviewed: Unknown Sibling(s) Family History Reviewed.: Unknown Medication/Allergy Allergies/Adverse Reactions: No Known Allergies Allergy (Verified 09/07/18 17:58) Review of Systems All systems: reviewed and no additional remarkable complaints except as stated Cardiovascular: ABSENT: chest pain Respiratory: ABSENT: cough Gastrointestinal: ABSENT: abdominal pain, nausea, vomiting Physical Exam Vital Signs: Temp Pulse Resp BP Pulse Ox 18 141/113 H 97 09/07/18 17:02 09/07/18 17:02 09/07/18 17:02 Intake & Output 09/06/18 09/07/18 09/08/18 06:59 06:59 06:59 Intake Total 1000 Balance 1000 General appearance: PRESENT: disheveled, morbidly obese, other - Ill-appearing Head exam: PRESENT: atraumatic, normocephalic Eye exam: ABSENT: conjunctival injection, scleral icterus Ear exam: PRESENT: normal external ear exam Mouth exam: PRESENT: dry mucosa Teeth exam: PRESENT: poor dentation Neck exam: ABSENT: tracheal deviation Respiratory exam: PRESENT: decreased breath sounds, symmetrical - Coarse breath sounds with labored breathing-use of accessory muscles noted Cardiovascular exam: PRESENT: +S1, +S2 Pulses: PRESENT: other - Decreased bilateral pedal pulses GI/Abdominal exam: PRESENT: normal bowel sounds, soft. ABSENT: tenderness Extremities exam: PRESENT: pedal edema - Bilateral lower extremity 3+ edema up to knees Musculoskeletal exam: ABSENT: tenderness Neurological exam: PRESENT: alert, awake, oriented to person, oriented to place , CN II-XII grossly intact. ABSENT: oriented to time - Tells me it is August Psychiatric exam: ABSENT: homicidal ideation, suicidal ideation Skin exam: PRESENT: erythema - Bilateral lower extremity erythema up to knees, skin tears - Bilateral lower extremity some areas of open wound noted Results Impressions: Chest X-Ray 09/07/18 15:37 IMPRESSION: NO ACUTE RADIOGRAPHIC FINDING IN THE CHEST. Assessment & Plan - Diagnosis (1) Septic shock due to coagulase-negative staphylococcal infection Is this a current diagnosis for this admission?: Yes (2) Acute kidney injury Is this a current diagnosis for this admission?: Yes (3) Lower extremity cellulitis Qualifiers: Laterality: unspecified laterality Qualified Code(s): L03.119 - Cellulitis of unspecified part of limb Is this a current diagnosis for this admission?: Yes (4) Diabetes mellitus type 2 in obese Is this a current diagnosis for this admission?: Yes (5) Dehydration Is this a current diagnosis for this admission?: Yes (6) Hyperglycemia Is this a current diagnosis for this admission?: Yes (7) Hyponatremia Is this a current diagnosis for this admission?: Yes (8) Hyperkalemia Is this a current diagnosis for this admission?: Yes - Time Critical Time spent with patient: 35 or more minutes Anticipated discharge: Home with Homehealth, Acute Rehab - Inpatient Certification Medical Necessity: Significant Comorbidiites Make Outpatient Treatment Too Risky , Need Close Monitoring Due to Risk of Patient Decompensation, Need For IV Fluids, Need For Continuous Telemetry Monitoring, Need for Neurological Checks, Need for IV Antibiotics, Risk of Complication if Not Cared For in Hospital - Plan Summary Plan Summary: Septic shock-lactic acid was greater than 4 on arrival, WBC greater than 20,000 , tachycardic, tachypnea. Most likely his septic shock is secondary to bilateral lower extremity cellulitis. He received 1 L normal saline bolus in the ED. I will give him 30 cc/kg IV fluids per sepsis protocol. Repeat lactic acid every 3 hours until less than 2. He received Zosyn and vancomycin in the ED. I will continue with broad-spectrum antibiotics at this time. I will place him in the ICU for close observation. Given his situation he is at high risk of mortality. I did explain this to the and patient. AK I-creatinine greater than 4. He does not tell me that he has a history of chronic kidney disease. I think this is all prerenal since he has not been eating or having p.o. intake in the last week. He also has not been voiding over the last 3-4 days per his . I believe he is very dehydrated and IV fluids will help. Repeat BMP in the morning Bilateral lower extremity cellulitis and swelling-started on IV antibiotics as stated above. He has 3+ edema of the lower extremity. We will start to diurese him from tomorrow with Lasix. I do not have his medication list as he is unable to provide me with one at this time. Will get echo in the morning to assess his cardiac function given his lower extremity edema. Diabetes type 2-I do not know what his home regimen is and I am still waiting medicine reconciliation. Patient is a poor historian and unable to tell me what he takes at home. He was hyperglycemic on arrival and I started him on insulin sliding scale at this time. Once I know his home medication I can start him on long-acting insulin such as Lantus. Do not think he is in DKA or HH NK at this time Hypertension-once again I do not have his medications from home. I will start him on hydralazine as needed to control his blood pressure at this time. Hyponatremia-although he has lower extremity 3+ edema, he is dehydrated secondary to no p.o. intake in the last week. Given his septic shock I had to give him 30 cc/kg IV fluids. This may worsen his hyponatremia unfortunately but at this time given his septic shock I had to go ahead and give him IV fluids. I may have to add IV Lasix to counteract all the fluid. Dehydration-we will start him on maintenance IV fluids Hyperkalemia-most likely this will resolve with IV fluids, repeat BMP in a.m.
[2018-09-07 20:18] LABS: BLOOD UREA NITROGEN 115 mg/dL (7-20); CALCIUM 8.2 mg/dL (8.4-10.2); POTASSIUM 4.5 mmol/L (3.6-5.0)
[2018-09-07 20:24] LABS: CARBON DIOXIDE 20 mmol/L (22-30); CHLORIDE 78 mmol/L (98-107); SODIUM 121.2 mmol/L (137-145)
[2018-09-07 20:27] LABS: ANION GAP 23 (5-19)
[2018-09-07 20:29] LABS: GLUCOSE 502 mg/dL (75-110)
[2018-09-07] MEDS ORDERED: NORMAL SALINE 1000 ML 1,000 ML IV PRN (21:00)
[2018-09-07] MEDS: INSULIN LISPRO 100 UNIT/ML 3 ML VIAL SUBCUT PRN (21:09)
--- NOTE | 2018-09-07 21:24 | RADIOLOGY REPORT (SQ) ---
CT ABDOMEN PELVIS WITHOUT IV CONTRAST HISTORY: Septic shock. Evaluate for intra-abdominal source. COMPARISON: None. TECHNIQUE: CT scan of the abdomen and pelvis without IV contrast. This exam was performed according to our departmental dose-optimization program, which includes automated exposure control, adjustment of the mA and/or kV according to patient size and/or use of iterative reconstruction technique. FINDINGS: Please note that the evaluation of the solid and hollow abdominal viscera is limited without IV contrast. The lung bases are clear. No pleural or pericardial effusions. The liver, spleen, and pancreas are unremarkable. No gallstones by CT criteria. No biliary ductal dilatation is seen. No adrenal masses are identified. No hydronephrosis in the kidneys. No ureteral or bladder stones are seen. The prostate gland is enlarged measuring 6 cm. Blake catheter in situ. There is a 1.2 cm calcification in the bladder. The distal thoracic esophagus and stomach are unremarkable. No small bowel obstruction. The appendix is visualized and is normal caliber. There is a moderate amount of stool in the colon and rectum. No mesenteric adenopathy, free fluid or free air is identified. The abdominal aorta and IVC are normal caliber. No acute osseous findings. IMPRESSION: 1.2 cm calcification in the bladder. Blake catheter in situ. Correlate with urinalysis to exclude UTI. Otherwise no acute abnormal findings in the abdomen or pelvis.
[2018-09-07] MEDS ORDERED: INSULIN REG, HUMAN 100 UNIT/ML 3 ML VIAL (PYX) IV ONE (21:26)
[2018-09-07] MEDS: HEPARIN SOD (PORCINE) 5,000 UNIT/ML 1 ML SYRINGE SUBCUT SCH (22:41)
[2018-09-07] MEDS: FAMOTIDINE INJ/PF 20 MG/2 ML SDV IV SCH (22:41)
[2018-09-07] MEDS: PIPERACILLIN SODIUM/TAZOBACTAM 2.25 GM in NORMAL SALINE 50 ML IV SCH (23:48)
[2018-09-08] MEDS: DOCUSATE SODIUM 100 MG CAPSULE PO SCH ×3 (01:48→17:08)
[2018-09-08] MEDS: PIPERACILLIN SODIUM/TAZOBACTAM 2.25 GM in NORMAL SALINE 50 ML IV SCH ×4 (05:55→23:25)
[2018-09-08] MEDS: HEPARIN SOD (PORCINE) 5,000 UNIT/ML 1 ML SYRINGE SUBCUT SCH ×3 (06:01→21:24)
[2018-09-08 06:14] LABS: ARTERIAL BLOOD BASE EXCESS -6.5 mmol/L; ARTERIAL BLOOD FIO2 21%; ARTERIAL BLOOD HCO3 17.6 mmol/L (20-24); ARTERIAL BLOOD O2 SATURATION 96.8 % (94-98); ARTERIAL BLOOD PH 7.39 (7.35-7.45); ARTERIAL BLOOD PO2 89.1 mmHg (80-100); ARTERIAL BLOOD TOTAL CO2 18.6 mmol/L (23-27)
[2018-09-08 06:19] LABS: HEMATOCRIT 26.1 % (37.9-51.0); HEMOGLOBIN 8.9 g/dL (13.5-17.0); MEAN CORPUSCULAR HEMOGLOBIN 31.1 pg (27.0-33.4); MEAN CORPUSCULAR HGB CONC 34.1 g/dL (32.0-36.0); MEAN CORPUSCULAR VOLUME 91 fl (80-97); PLATELET COUNT 409 10^3/uL (150-450); RED BLOOD COUNT 2.87 10^6/uL (4.35-5.55); RED CELL DISTRIBUTION WIDTH 16.9 % (11.5-14.0); WHITE BLOOD COUNT 21.6 10^3/uL (4.0-10.5)
[2018-09-08 06:40] LABS: ABSOLUTE LYMPHOCYTES# (MANUAL) 2.2 10^3/uL (0.5-4.7); ABSOLUTE MONOCYTES # (MANUAL) 0.6 10^3/uL (0.1-1.4); ABSOLUTE NEUTROPHILS# (MANUAL) 18.8 10^3/uL (1.7-8.2); BASOPHILS % (MANUAL) 0 % (0-2); EOSINOPHILS % (MANUAL) 0 % (0-6); LYMPHOCYTES % (MANUAL) 10 % (13-45); MONOCYTES % (MANUAL) 3 % (3-13); SEGMENTED NEUTROPHILS % (MAN) 87 % (42-78); TOTAL CELLS COUNTED 100
[2018-09-08 06:42] LABS: BLOOD UREA NITROGEN 104 mg/dL (7-20); CALCIUM 7.2 mg/dL (8.4-10.2); GLUCOSE 324 mg/dL (75-110); POTASSIUM 4.5 mmol/L (3.6-5.0); TRIGLYCERIDES 159 mg/dL (<150)
[2018-09-08 06:47] LABS: CARBON DIOXIDE 19 mmol/L (22-30); CHLORIDE 87 mmol/L (98-107); SODIUM 125.5 mmol/L (137-145)
[2018-09-08 06:49] LABS: ANION GAP 20 (5-19); VLDL CHOLESTEROL 31.8 mg/dL (10-31)
[2018-09-08 06:52] LABS: DIRECT LDL 42 mg/dL (<100); TROPONIN I 0.015 ng/mL
[2018-09-08 06:56] LABS: ANISOCYTOSIS 1+; BURR CELLS 2+; OVALOCYTES 1+; PLATELET COMMENT ADEQUATE; POIKILOCYTOSIS 1+; TOXIC GRANULATION 1+
[2018-09-08 06:57] LABS: FREE T4 (FREE THYROXINE) 1.67 ng/dL (0.78-2.19)
[2018-09-08 07:11] LABS: THYROID STIMULATING HORMONE 0.14 uIU/mL (0.47-4.68)
[2018-09-08] MEDS: INSULIN LISPRO 100 UNIT/ML 3 ML VIAL SUBCUT PRN ×3 (07:33→16:17)
[2018-09-08] MEDS ORDERED: FUROSEMIDE INJ/PF 40 MG/4 ML SDV IV ONE ×2 (08:45→16:52)
[2018-09-08] MEDS ORDERED: NORMAL SALINE 1000 ML 1,000 ML IV PRN (08:50)
--- NOTE | 2018-09-08 09:00 | RADIOLOGY REPORT (SQ) ---
EXAM DESCRIPTION: CHEST SINGLE VIEW COMPLETED DATE/TIME: 09/08/2018 8:50 am REASON FOR STUDY: shortness of breath COMPARISON: 09/07/2018 NUMBER OF VIEWS: One view. TECHNIQUE: Single frontal radiographic view of the chest acquired. LIMITATIONS: None. FINDINGS: LUNGS AND PLEURA: No opacities, masses or pneumothorax. No pleural effusion. MEDIASTINUM AND HILAR STRUCTURES: No masses. Contour normal. HEART AND VASCULAR STRUCTURES: Heart enlarged without failure. Normal vasculature. BONES: No acute findings. HARDWARE: None in the chest. OTHER: No other significant finding. IMPRESSION: HEART ENLARGED WITHOUT FAILURE. NO OTHER SIGNIFICANT RADIOGRAPHIC FINDING IN THE CHEST. TECHNICAL DOCUMENTATION: JOB ID: [id number] [employer]- All Rights Reserved Reading location - IP/workstation name: [email or web address]
[2018-09-08 09:54] LABS: HEMATOCRIT 27.8 % (37.9-51.0); HEMOGLOBIN 9.6 g/dL (13.5-17.0); MEAN CORPUSCULAR HEMOGLOBIN 32.4 pg (27.0-33.4); MEAN CORPUSCULAR HGB CONC 34.6 g/dL (32.0-36.0); MEAN CORPUSCULAR VOLUME 94 fl (80-97); PLATELET COUNT 452 10^3/uL (150-450); RED BLOOD COUNT 2.97 10^6/uL (4.35-5.55); RED CELL DISTRIBUTION WIDTH 16.9 % (11.5-14.0); WHITE BLOOD COUNT 20.1 10^3/uL (4.0-10.5)
[2018-09-08] MEDS ORDERED: (PENDING PHARMACY ID) (Pravastatin Sodium [Pravachol] 40 MG) PO SCH (10:00)
[2018-09-08] MEDS: PREDNISONE 20 MG TABLET PO SCH (10:36)
[2018-09-08] MEDS: OXYCODONE-ACETAMINOPHEN 5-325 MG TABLET PO PRN (10:36)
[2018-09-08] MEDS: FAMOTIDINE INJ/PF 20 MG/2 ML SDV IV SCH ×2 (10:36→21:27)
[2018-09-08 10:48] LABS: ABSOLUTE LYMPHOCYTES# (MANUAL) 1.8 10^3/uL (0.5-4.7); ABSOLUTE NEUTROPHILS# (MANUAL) 16.3 10^3/uL (1.7-8.2); BAND NEUTROPHILS % (MANUAL) 3 % (3-5); BASOPHILS % (MANUAL) 0 % (0-2); EOSINOPHILS % (MANUAL) 0 % (0-6); LYMPHOCYTES % (MANUAL) 8 % (13-45); MONOCYTES % (MANUAL) 10 % (3-13); SEGMENTED NEUTROPHILS % (MAN) 78 % (42-78); TOTAL CELLS COUNTED 100
[2018-09-08 10:50] LABS: ANISOCYTOSIS 1+; OVALOCYTES SLIGHT; POIKILOCYTOSIS SLIGHT; POLYCHROMASIA 1+; TEAR DROP CELLS 1+; TOXIC GRANULATION 2+
[2018-09-08 10:51] LABS: PLATELET COMMENT ADEQUATE
--- NOTE | 2018-09-08 11:32 | RADIOLOGY REPORT (SQ) ---
EXAM DESCRIPTION: CHEST SINGLE VIEW COMPLETED DATE/TIME: 09/08/2018 11:23 am REASON FOR STUDY: Central Line Placement COMPARISON: Chest radiographs same date NUMBER OF VIEWS: One view. TECHNIQUE: Single frontal radiographic view of the chest acquired. LIMITATIONS: None. FINDINGS: Central venous access catheter placed via left subclavian approach. Catheter tip at into the IJ. Tip not seen.. No pneumothorax. Radiographic appearance of the chest otherwise stable. IMPRESSION: Central venous access catheter via left subclavian approach. Tip is in the IJ and not s een on the chest radiograph. TECHNICAL DOCUMENTATION: JOB ID: [id number] [employer]- All Rights Reserved Reading location - IP/workstation name: [email or web address]
[2018-09-08] MEDS: FLUOXETINE HCL 20 MG/5 ML UDCUP PO SCH (11:39)
[2018-09-08 13:10] LABS: BLOOD UREA NITROGEN 100 mg/dL (7-20); GLUCOSE 308 mg/dL (75-110); POTASSIUM 3.7 mmol/L (3.6-5.0)
[2018-09-08 13:15] LABS: CARBON DIOXIDE 15 mmol/L (22-30); CHLORIDE 89 mmol/L (98-107)
[2018-09-08 13:20] LABS: ANION GAP 23 (5-19)
[2018-09-08 13:22] LABS: CALCIUM 6.8 mg/dL (8.4-10.2)
[2018-09-08 16:48] LABS: ARTERIAL BLOOD BASE EXCESS -6.3 mmol/L; ARTERIAL BLOOD FIO2 2L; ARTERIAL BLOOD H2CO3 1.26 mmol/L (1.05-1.35); ARTERIAL BLOOD HCO3 19.7 mmol/L (20-24); ARTERIAL BLOOD O2 SATURATION 94.7 % (94-98); ARTERIAL BLOOD PCO2 41.7 mmHg (35-45); ARTERIAL BLOOD PH 7.29 (7.35-7.45); ARTERIAL BLOOD PO2 80.4 mmHg (80-100)
[2018-09-08] MEDS ORDERED: GLUCAGON,HUMAN RECOMB 1 MG INJ IM PRN (16:55)
[2018-09-08] MEDS ORDERED: DEXTROSE 50%-WATER 25 GM/50 ML DISP.SYRIN IV PRN ×2 (16:55)
[2018-09-08] MEDS ORDERED: DEXTROSE 40% GEL 15 GM TUBE PO PRN ×2 (16:55)
[2018-09-08] MEDS ORDERED: FUROSEMIDE INJ/PF 40 MG/4 ML SDV ONE (17:04)
[2018-09-08] MEDS: VANCOMYCIN HCL 1,250 MG in DEXTROSE 5%-WATER 250 ML IV SCH (18:04)
[2018-09-08 18:23] LABS: ANION GAP 18 (5-19); BLOOD UREA NITROGEN 95 mg/dL (7-20); CARBON DIOXIDE 21 mmol/L (22-30); CHLORIDE 89 mmol/L (98-107); GLUCOSE 294 mg/dL (75-110); POTASSIUM 3.6 mmol/L (3.6-5.0); SODIUM 127.7 mmol/L (137-145)
[2018-09-08 18:47] LABS: CALCIUM 6.9 mg/dL (8.4-10.2)
[2018-09-08] MEDS ORDERED: INSULIN GLARGINE,HUM.REC.ANLOG 1,000 UNIT/10 ML UNIT SUBCUT ONE (21:12)
[2018-09-08] MEDS: INSULIN GLARGINE,HUM.REC.ANLOG 300 UNIT/3 ML INSULN.PEN SUBCUT SCH (21:26)
[2018-09-08] MEDS: ATORVASTATIN CALCIUM 10 MG TABLET PO SCH (21:27)
[2018-09-09] MEDS: INSULIN LISPRO 100 UNIT/ML 3 ML VIAL SUBCUT PRN ×6 (00:06→22:52)
[2018-09-09 00:19] LABS: ALANINE AMINOTRANSFERASE 44 U/L (21-72); ALBUMIN 2.3 g/dL (3.5-5.0); ALKALINE PHOSPHATASE 116 U/L (38-126); ASPARTATE AMINO TRANSFERASE 52 U/L (17-59); BILIRUBIN,DIRECT 0.7 mg/dL (0.0-0.4); BLOOD UREA NITROGEN 95 mg/dL (7-20); CALCIUM 7.1 mg/dL (8.4-10.2); GLUCOSE 280 mg/dL (75-110); POTASSIUM 3.5 mmol/L (3.6-5.0); TOTAL PROTEIN 4.8 g/dL (6.3-8.2)
[2018-09-09 00:24] LABS: ANION GAP 18 (5-19); CARBON DIOXIDE 22 mmol/L (22-30); CHLORIDE 90 mmol/L (98-107); SODIUM 129.8 mmol/L (137-145)
[2018-09-09] MEDS: POTASSIUM CHLORIDE 20 MEQ/50 ML RTU IV SCH ×2 (03:34→10:00)
[2018-09-09] MEDS: HEPARIN SOD (PORCINE) 5,000 UNIT/ML 1 ML SYRINGE SUBCUT SCH ×3 (05:45→22:42)
[2018-09-09] MEDS: PIPERACILLIN SODIUM/TAZOBACTAM 2.25 GM in NORMAL SALINE 50 ML IV SCH ×3 (05:46→17:45)
[2018-09-09 08:36] LABS: HEMATOCRIT 26.3 % (37.9-51.0); HEMOGLOBIN 8.8 g/dL (13.5-17.0); MEAN CORPUSCULAR HEMOGLOBIN 30.4 pg (27.0-33.4); MEAN CORPUSCULAR HGB CONC 33.6 g/dL (32.0-36.0); PLATELET COUNT 437 10^3/uL (150-450); RED BLOOD COUNT 2.91 10^6/uL (4.35-5.55); RED CELL DISTRIBUTION WIDTH 16.8 % (11.5-14.0); WHITE BLOOD COUNT 21.7 10^3/uL (4.0-10.5)
[2018-09-09 08:58] LABS: ANION GAP 15 (5-19); BLOOD UREA NITROGEN 86 mg/dL (7-20); CALCIUM 7.2 mg/dL (8.4-10.2); CARBON DIOXIDE 25 mmol/L (22-30); CHLORIDE 91 mmol/L (98-107); GLUCOSE 238 mg/dL (75-110); POTASSIUM 3.5 mmol/L (3.6-5.0); SODIUM 131.3 mmol/L (137-145)
[2018-09-09] MEDS: DOCUSATE SODIUM 100 MG CAPSULE PO SCH ×2 (09:22→17:47)
[2018-09-09] MEDS: FLUOXETINE HCL 20 MG/5 ML UDCUP PO SCH (09:22)
[2018-09-09] MEDS: PREDNISONE 20 MG TABLET PO SCH (09:22)
[2018-09-09] MEDS: FAMOTIDINE INJ/PF 20 MG/2 ML SDV IV SCH ×2 (09:22→22:41)
[2018-09-09 09:24] LABS: MEAN CORPUSCULAR VOLUME 90 fl (80-97)
[2018-09-09 09:30] LABS: ABSOLUTE LYMPHOCYTES# (MANUAL) 0.9 10^3/uL (0.5-4.7); ABSOLUTE MONOCYTES # (MANUAL) 0.9 10^3/uL (0.1-1.4); BASOPHILS % (MANUAL) 0 % (0-2); EOSINOPHILS % (MANUAL) 0 % (0-6); LYMPHOCYTES % (MANUAL) 4 % (13-45); MONOCYTES % (MANUAL) 4 % (3-13); SEGMENTED NEUTROPHILS % (MAN) 92 % (42-78); TOTAL CELLS COUNTED 100
[2018-09-09 09:32] LABS: ANISOCYTOSIS 1+; OVALOCYTES SLIGHT; PLATELET CLUMPS PRESENT; PLATELET COMMENT ADEQUATE; POIKILOCYTOSIS SLIGHT; POLYCHROMASIA SLIGHT; TOXIC GRANULATION 2+
[2018-09-09] MEDS ORDERED: FUROSEMIDE INJ/PF 40 MG/4 ML SDV ONE ×2 (09:41→18:44)
[2018-09-09] MEDS ORDERED: POTASSI CL 20 MEQ/50 ML RIDER 20 MEQ/50 ML RTUPB IV ONE (09:59)
--- NOTE | 2018-09-09 10:20 | PDOC PROGRESS REPORT ---
Subjective Progress Note for:: 09/08/18 - seen on rounds this morning Subjective:: seems to be somewhat confused this morning. able to tell me this name, but not time/place- thinks this is new , august and 2000. no family at bedside Reason For Visit: SEPTIC SHOCK Physical Exam Vital Signs: Temp Pulse Resp BP Pulse Ox 98.2 F 22 H 119/62 95 09/08/18 04:01 09/08/18 05:02 09/08/18 06:01 09/08/18 06:01 Intake & Output 09/07/18 09/08/18 09/09/18 06:59 06:59 06:59 Intake Total 5450 50 Output Total 1200 Balance 4250 50 General appearance: PRESENT: morbidly obese Head exam: PRESENT: atraumatic, normocephalic Eye exam: PRESENT: EOMI. ABSENT: conjunctival injection, scleral icterus Ear exam: PRESENT: normal external ear exam Teeth exam: PRESENT: poor dentation Neck exam: ABSENT: tracheal deviation Respiratory exam: PRESENT: decreased breath sounds - bilaterally in all lung qureshi decreased breath sounds, some crackles appreciated, symmetrical. ABSENT : wheezes Cardiovascular exam: PRESENT: +S1, +S2 Pulses: PRESENT: other - unable to appreciate pedal pulses this morning GI/Abdominal exam: PRESENT: hypoactive bowel sounds, soft, other - obese abdomen. ABSENT: tenderness Gentrourinary exam: PRESENT: other - castellanos noted Neurological exam: PRESENT: alert, awake, oriented to person, CN II-XII grossly intact Skin exam: PRESENT: erythema - b/l LE erthema- 3+ edema up knee, skin tears - sacral stage 2 ulcers - tender, warm Results Laboratory Results: 09/08/18 06:05 09/08/18 06:05 09/07/18 09/07/18 09/07/18 18:10 19:46 21:47 WBC RBC Hgb Hct MCV MCH MCHC RDW Plt Count Seg Neutrophils % Lymphocytes % Monocytes % Eosinophils % Basophils % Absolute Neutrophils Absolute Lymphocytes Absolute Monocytes Absolute Eosinophils Absolute Basophils Carbonic Acid HCO3/H2CO3 Ratio ABG pH ABG pCO2 ABG pO2 ABG HCO3 ABG O2 Saturation ABG Base Excess FiO2 Sodium 121.2 L Potassium 4.5 Chloride 78 L Carbon Dioxide 20 L Anion Gap 23 H BUN 115 H Creatinine 4.48 H Est GFR ( Amer) 16 L Est GFR (Non-Af Amer) 13 L Glucose 502 H* Lactic Acid 2.5 H 3.1 H Calcium 8.2 L Magnesium Ammonia Triglycerides Cholesterol LDL Cholesterol Direct VLDL Cholesterol HDL Cholesterol TSH Free T4 09/08/18 09/08/18 09/08/18 00:20 06:00 06:05 WBC 21.6 H RBC 2.87 L Hgb 8.9 L Hct 26.1 L MCV 91 MCH 31.1 MCHC 34.1 RDW 16.9 H Plt Count 409 Seg Neutrophils % Not Reportable Lymphocytes % Not Reportable Monocytes % Not Reportable Eosinophils % Not Reportable Basophils % Not Reportable Absolute Neutrophils Not Reportable Absolute Lymphocytes Not Reportable Absolute Monocytes Not Reportable Absolute Eosinophils Not Reportable Absolute Basophils Not Reportable Carbonic Acid 0.90 L HCO3/H2CO3 Ratio 19:1 ABG pH 7.39 ABG pCO2 30.0 L ABG pO2 89.1 ABG HCO3 17.6 L ABG O2 Saturation 96.8 ABG Base Excess -6.5 FiO2 21% Sodium Potassium Chloride Carbon Dioxide Anion Gap BUN Creatinine Est GFR ( Amer) Est GFR (Non-Af Amer) Glucose Lactic Acid 2.7 H Calcium Magnesium Ammonia Triglycerides Cholesterol LDL Cholesterol Direct VLDL Cholesterol HDL Cholesterol TSH Free T4 09/08/18 09/08/18 09/08/18 06:05 06:05 06:05 WBC RBC Hgb Hct MCV MCH MCHC RDW Plt Count Seg Neutrophils % Lymphocytes % Monocytes % Eosinophils % Basophils % Absolute Neutrophils Absolute Lymphocytes Absolute Monocytes Absolute Eosinophils Absolute Basophils Carbonic Acid HCO3/H2CO3 Ratio ABG pH ABG pCO2 ABG pO2 ABG HCO3 ABG O2 Saturation ABG Base Excess FiO2 Sodium 125.5 L Potassium 4.5 Chloride 87 L Carbon Dioxide 19 L Anion Gap 20 H BUN 104 H Creatinine 3.86 H Est GFR ( Amer) 19 L Est GFR (Non-Af Amer) 16 L Glucose 324 H Lactic Acid Calcium 7.2 L Magnesium 3.7 H Ammonia < 8.7 L Triglycerides 159 H Cholesterol 84.70 LDL Cholesterol Direct 42 VLDL Cholesterol 31.8 H HDL Cholesterol 16 L TSH 0.14 L Free T4 1.67 09/07/18 09/08/18 23:54 06:05 Troponin I 0.014 0.015 NT-Pro-B Natriuret Pep 1600 H Impressions: Abdomen/Pelvis CT 09/07/18 00:00 IMPRESSION: 1.2 cm calcification in the bladder. Castellanos catheter in situ. Correlate with urinalysis to exclude UTI. Otherwise no acute abnormal findings in the abdomen or pelvis. Chest X-Ray 09/07/18 15:37 IMPRESSION: NO ACUTE RADIOGRAPHIC FINDING IN THE CHEST. Assessment & Plan - Diagnosis (1) Septic shock due to coagulase-negative staphylococcal infection Is this a current diagnosis for this admission?: Yes (2) Acute kidney injury Is this a current diagnosis for this admission?: Yes (3) Lower extremity cellulitis Qualifiers: Laterality: unspecified laterality Qualified Code(s): L03.119 - Cellulitis of unspecified part of limb Is this a current diagnosis for this admission?: Yes (4) Diabetes mellitus type 2 in obese Is this a current diagnosis for this admission?: Yes (5) Dehydration Is this a current diagnosis for this admission?: Yes (6) Hyperglycemia Is this a current diagnosis for this admission?: Yes (7) Hyponatremia Is this a current diagnosis for this admission?: Yes (8) Hyperkalemia Is this a current diagnosis for this admission?: Yes (9) Hyperbilirubinemia Is this a current diagnosis for this admission?: Yes (10) Elevated troponin Is this a current diagnosis for this admission?: Yes - Time Total Critical Time (Minutes): 40 Within: Other - remains critical - Plan Summary Plan Summary: Septic shock-lactic acid remains elevated- will continue to trended until <2. i believe this sepsis is from LE cellulitis- but he also has sacral decubitus ulcers- stage 2. yesterday i did give him 30cc/kg but i think now he's volume overloaded- need to give him some IV lasix to diurese him. c/w Zosyn and Vanco IV for broad spectrum coverage. he remains in ICU and his prognosis is very poor. i have discussed this with his on admission and she understands. c/ w IV fluids for hydration. his pressure may also drop today since we have to diurese him a little- i am also concerned about this and he may end up on a vent for airway protection with pressor support. he remains a FULL CODE AK I- Cr did improve overnight to 3.8. i think it will take some time before they come down to baseline- not sure about his baseline at this time. he does have DM so i am not sure if he has any nephropathy. will continue with IVF fluids- he will be getting some lasix so his Cr may worsen somewhat. continue to hold any other nephrotoxic agents. repeat BMP later today. he has poor peripheral access- will consult surgery for a central line Bilateral lower extremity cellulitis and swelling-on IV zosyn and vanco at this time. still has erythema of LE. I have ordered U/S LE but due to it being weekend there's no current services available. i do not think he has DVT's since it is bilateral but he does live a sedentary life. he received a lot of IV fluids due to his sepsis- will give him one dose of Lasix and re-evaluate his volume status. Diabetes type 2-i still do not have his home meds- is supposed to bring them from home today- will adjust meds then- c/w SSI for now. I did however get his A1c and it is 12.6. Uncontrolled DM- likely he's on insulin at home and not well controlled. Hypertension-once again I do not have his medications from home. i did not end up starting hydralazine PRN since i think he will bottom out as we start to treat his sepsis. i am worried he will require pressure support. Hyponatremia-even after 5.5L of IV fluids for septic shock his Na is at 125 this morning. Will continue to get BMP Q6H at this time- will have to be careful how quickly we are changing this- should raise Na 6-8 meq with 10meq/ 24hr max Na goal. will slow down this IV fluids at this time. Dehydration-continue with some gentle hydration at this time Hyperkalemia-resolved with IV fluids, monitor for now Elevated Tropnin- likely 2/2 ULISES- will get troponin this afternoon- will get repeat EKG. I do not think he has NSTEMI at this time. Hyperbilirubinemia- ?unclear etiology- will repeat in AM and see if it trends down. this may be all due to his septic shock.
[2018-09-09] MEDS ORDERED: POTASSIUM CHLORIDE 20 MEQ/15 ML UDCUP PO SCH (10:30)
--- NOTE | 2018-09-09 10:38 | EKG REPORT ---
SEVERITY:- ABNORMAL ECG - SINUS RHYTHM PROBABLE LEFT ATRIAL ABNORMALITY RIGHT BUNDLE BRANCH BLOCK : Confirmed by: Maricel Eubanks 09-Sep-2018 10:38:30
--- NOTE | 2018-09-09 10:39 | EKG REPORT ---
SEVERITY:- ABNORMAL ECG - SINUS TACHYCARDIA PROBABLE LEFT ATRIAL ABNORMALITY RIGHT BUNDLE BRANCH BLOCK : Confirmed by: Maricel Eubanks 09-Sep-2018 10:38:47
--- NOTE | 2018-09-09 10:41 | PDOC PROGRESS REPORT ---
Subjective Progress Note for:: 09/09/18 - Seen on rounds this morning Subjective:: Patient seen on rounds this morning. He is doing very well. He seems alert and oriented today. He tells me that his leg hurts. Reason For Visit: SEPTIC SHOCK Physical Exam Vital Signs: Temp Pulse Resp BP Pulse Ox 97.9 F 89 15 132/79 H 96 09/09/18 08:00 09/09/18 08:00 09/09/18 08:19 09/09/18 08:19 09/09/18 08:19 Intake & Output 09/08/18 09/09/18 09/10/18 06:59 06:59 06:59 Intake Total 5450 3244 Output Total 1200 3990 400 Balance 4250 -746 -400 Weight 364 lb 13.84 oz General appearance: PRESENT: no acute distress, morbidly obese Head exam: PRESENT: atraumatic, normocephalic Eye exam: PRESENT: EOMI. ABSENT: conjunctival injection, scleral icterus Ear exam: PRESENT: normal external ear exam Mouth exam: PRESENT: tongue midline Teeth exam: PRESENT: poor dentation Neck exam: ABSENT: tracheal deviation Respiratory exam: PRESENT: accessory muscle use - With deep inspiration and exertion, decreased breath sounds - Bilaterally but he had poor inspiratory effort., symmetrical Cardiovascular exam: PRESENT: +S1, +S2 Pulses: PRESENT: +1 pedal pulses bilateral GI/Abdominal exam: PRESENT: normal bowel sounds, soft, other - Obese abdomen. ABSENT: distended, guarding, tenderness Extremities exam: PRESENT: other - Bilateral lower extremity 3+ edema up to mid marvin Neurological exam: PRESENT: alert, awake, oriented to person, oriented to place , oriented to time, oriented to situation, CN II-XII grossly intact Skin exam: PRESENT: dry, erythema - Bilateral lower extremity erythema-improving , warm, other - Skin open wounds noted on both lower extremity-right worse than left Results Laboratory Results: 09/09/18 08:05 09/09/18 08:05 09/08/18 09/08/18 09/08/18 09:18 12:45 12:45 WBC 20.1 H RBC 2.97 L Hgb 9.6 L Hct 27.8 L MCV 94 MCH 32.4 MCHC 34.6 RDW 16.9 H Plt Count 452 H Seg Neutrophils % Not Reportable Lymphocytes % Not Reportable Monocytes % Not Reportable Eosinophils % Not Reportable Basophils % Not Reportable Absolute Neutrophils Not Reportable Absolute Lymphocytes Not Reportable Absolute Monocytes Not Reportable Absolute Eosinophils Not Reportable Absolute Basophils Not Reportable Carbonic Acid HCO3/H2CO3 Ratio ABG pH ABG pCO2 ABG pO2 ABG HCO3 ABG O2 Saturation ABG Base Excess FiO2 Sodium 127.0 L Potassium 3.7 Chloride 89 L Carbon Dioxide 15 L Anion Gap 23 H BUN 100 H Creatinine 3.45 H Est GFR ( Amer) 22 L Est GFR (Non-Af Amer) 18 L Glucose 308 H Lactic Acid 1.4 Calcium 6.8 L* Magnesium Total Bilirubin AST ALT Alkaline Phosphatase Total Protein Albumin 09/08/18 09/08/18 09/08/18 12:45 16:33 17:57 WBC RBC Hgb Hct MCV MCH MCHC RDW Plt Count Seg Neutrophils % Lymphocytes % Monocytes % Eosinophils % Basophils % Absolute Neutrophils Absolute Lymphocytes Absolute Monocytes Absolute Eosinophils Absolute Basophils Carbonic Acid 1.26 HCO3/H2CO3 Ratio 15:1 ABG pH 7.29 L ABG pCO2 41.7 ABG pO2 80.4 ABG HCO3 19.7 L ABG O2 Saturation 94.7 ABG Base Excess -6.3 FiO2 2L Sodium 127.7 L Potassium 3.6 Chloride 89 L Carbon Dioxide 21 L Anion Gap 18 BUN 95 H Creatinine 3.49 H Est GFR ( Amer) 22 L Est GFR (Non-Af Amer) 18 L Glucose 294 H Lactic Acid Calcium 6.9 L* Magnesium Total Bilirubin AST ALT Alkaline Phosphatase Total Protein Albumin 2.3 L 09/08/18 09/09/18 09/09/18 23:45 08:05 08:05 WBC 21.7 H RBC 2.91 L Hgb 8.8 L Hct 26.3 L MCV 90 D MCH 30.4 MCHC 33.6 RDW 16.8 H Plt Count 437 Seg Neutrophils % Not Reportable Lymphocytes % Not Reportable Monocytes % Not Reportable Eosinophils % Not Reportable Basophils % Not Reportable Absolute Neutrophils Not Reportable Absolute Lymphocytes Not Reportable Absolute Monocytes Not Reportable Absolute Eosinophils Not Reportable Absolute Basophils Not Reportable Carbonic Acid HCO3/H2CO3 Ratio ABG pH ABG pCO2 ABG pO2 ABG HCO3 ABG O2 Saturation ABG Base Excess FiO2 Sodium 129.8 L 131.3 L Potassium 3.5 L 3.5 L Chloride 90 L 91 L Carbon Dioxide 22 25 Anion Gap 18 15 BUN 95 H 86 H Creatinine 3.15 H 3.07 H Est GFR ( Amer) 24 L 25 L Est GFR (Non-Af Amer) 20 L 21 L Glucose 280 H 238 H Lactic Acid Calcium 7.1 L 7.2 L Magnesium 3.3 H 3.4 H Total Bilirubin 1.0 AST 52 ALT 44 Alkaline Phosphatase 116 Total Protein 4.8 L Albumin 2.3 L 09/07/18 09/08/18 09/08/18 23:54 06:05 09:18 Troponin I 0.014 0.015 0.015 NT-Pro-B Natriuret Pep 1600 H 09/08/18 09/08/18 12:45 15:06 Troponin I 0.014 < 0.012 NT-Pro-B Natriuret Pep Impressions: Abdomen/Pelvis CT 09/07/18 00:00 IMPRESSION: 1.2 cm calcification in the bladder. Blake catheter in situ. Correlate with urinalysis to exclude UTI. Otherwise no acute abnormal findings in the abdomen or pelvis. Chest X-Ray 09/08/18 10:57 IMPRESSION: Central venous access catheter via left subclavian approach. Tip is in the IJ and not seen on the chest radiograph. Assessment & Plan - Diagnosis (1) Septic shock due to coagulase-negative staphylococcal infection Is this a current diagnosis for this admission?: Yes (2) Acute kidney injury Is this a current diagnosis for this admission?: Yes (3) Lower extremity cellulitis Qualifiers: Laterality: unspecified laterality Qualified Code(s): L03.119 - Cellulitis of unspecified part of limb Is this a current diagnosis for this admission?: Yes (4) Diabetes mellitus type 2 in obese Is this a current diagnosis for this admission?: Yes (5) Dehydration Is this a current diagnosis for this admission?: Yes (6) Hyperglycemia Is this a current diagnosis for this admission?: Yes (7) Hyponatremia Is this a current diagnosis for this admission?: Yes (8) Hyperkalemia Is this a current diagnosis for this admission?: Yes (9) Hyperbilirubinemia Is this a current diagnosis for this admission?: Yes (10) Elevated troponin Is this a current diagnosis for this admission?: Yes - Time Total Critical Time (Minutes): 35 - Inpatient Certification Based on my medical assessment, after consideration of the patient's comorbidities, presenting symptoms, or acuity I expect that the services needed warrant INPATIENT care.: Yes Medical Necessity: Need Close Monitoring Due to Risk of Patient Decompensation, Need For Continuous Telemetry Monitoring, Need for IV Antibiotics, Risk of Complication if Not Cared For in Hospital - Plan Summary Plan Summary: Septic shock-lactic acid has resolved. Patient is somewhat improving today. i believe his sepsis is from LE cellulitis- but he also has sacral decubitus ulcers- stage 2. i did give him 30cc/kg IV fluid resuscitation. c/w Zosyn and Vanco IV for broad spectrum coverage. I think if he continues to improve then we may consider downgrading him. No family at bedside. I have stopped his IV fluids since he is volume overloaded at this time. I have continued to give him some Lasix to diurese him. He remains a FULL CODE AK I-creatinine continues to improve and he is having good urine output. I think it will take some time before they come down to baseline- not sure about his baseline at this time. he does have DM so i am not sure if he has any nephropathy. he will be getting some lasix so his Cr may worsen somewhat. continue to hold any other nephrotoxic agents. repeat BMP. he has poor peripheral access-we did get a central line Bilateral lower extremity cellulitis and swelling-on IV zosyn and vanco at this time. still has erythema of LE but it is improving. I have ordered U/S LE but due to it being weekend there's no current services available. i do not think he has DVT's since it is bilateral but he does live a sedentary life. he received a lot of IV fluids due to his sepsis-at this time I am starting to give him IV Lasix 40 mg twice a day and he is having good urine output. Echocardiogram is pending. Diabetes type 2-hold p.o. home medicine. c/w SSI and last night I added Lantus 10 units. I did however get his A1c and it is 12.6. Uncontrolled DM Hypertension-seems to be doing well and maintaining his pressure but his home medicine called for Cardizem 60 mg twice daily. I will start him on his home medicine but I am not sure why he is on Cardizem and whether he has A. fib or not. Hyponatremia-sodium is improving gradually. I have held his IV fluids and currently giving him IV Lasix since he is volume overloaded. BMP every 12. Dehydration-he did receive IV fluids after admission but since then I have started on Lasix to diurese him a little bit. He may need intermittent IV fluids. Hyperkalemia-resolved with IV fluids, monitor for now Elevated Tropnin-trended down-most likely demand mismatch-likely 2/2 ULISES- I do not think he has NSTEMI at this time. Mghcqdcezeldzsyffh-lcgobckd-ghxh likely secondary to his septic shock.
[2018-09-09] MEDS: OXYCODONE-ACETAMINOPHEN 5-325 MG TABLET PO PRN (12:22)
[2018-09-09] MEDS ORDERED: FUROSEMIDE INJ/PF 40 MG/4 ML SDV IV ONE (18:50)
[2018-09-09] MEDS: VANCOMYCIN HCL 1,250 MG in DEXTROSE 5%-WATER 250 ML IV SCH (18:57)
[2018-09-09] MEDS: POTASSIUM CHLORIDE 20 MEQ/15 ML UDCUP PO SCH (22:41)
[2018-09-09] MEDS: DILTIAZEM HCL 60 MG TABLET PO SCH (22:42)
[2018-09-09] MEDS: ATORVASTATIN CALCIUM 10 MG TABLET PO SCH (22:42)
[2018-09-09] MEDS: INSULIN GLARGINE,HUM.REC.ANLOG 300 UNIT/3 ML INSULN.PEN SUBCUT SCH (22:49)
[2018-09-10] MEDS: PIPERACILLIN SODIUM/TAZOBACTAM 2.25 GM in NORMAL SALINE 50 ML IV SCH ×5 (00:19→23:45)
[2018-09-10 00:53] LABS: ANION GAP 17 (5-19); BLOOD UREA NITROGEN 79 mg/dL (7-20); CALCIUM 7.6 mg/dL (8.4-10.2); CARBON DIOXIDE 25 mmol/L (22-30); CHLORIDE 92 mmol/L (98-107); GLUCOSE 236 mg/dL (75-110); POTASSIUM 3.5 mmol/L (3.6-5.0)
[2018-09-10] MEDS: HEPARIN SOD (PORCINE) 5,000 UNIT/ML 1 ML SYRINGE SUBCUT SCH ×3 (05:42→23:28)
[2018-09-10] MEDS: OXYCODONE-ACETAMINOPHEN 5-325 MG TABLET PO PRN ×3 (05:43→17:14)
[2018-09-10 06:27] LABS: BLOOD UREA NITROGEN 78 mg/dL (7-20); CALCIUM 7.8 mg/dL (8.4-10.2); GLUCOSE 216 mg/dL (75-110); POTASSIUM 3.4 mmol/L (3.6-5.0)
[2018-09-10 06:32] LABS: ANION GAP 19 (5-19); CARBON DIOXIDE 25 mmol/L (22-30); CHLORIDE 93 mmol/L (98-107); SODIUM 136.8 mmol/L (137-145)
[2018-09-10] MEDS: PREDNISONE 20 MG TABLET PO SCH (09:42)
[2018-09-10] MEDS: POTASSIUM CHLORIDE 20 MEQ/15 ML UDCUP PO SCH ×2 (09:43→23:20)
[2018-09-10] MEDS: DOCUSATE SODIUM 100 MG CAPSULE PO SCH ×2 (09:43→17:14)
[2018-09-10] MEDS: DILTIAZEM HCL 60 MG TABLET PO SCH ×2 (09:43→23:21)
[2018-09-10] MEDS: FLUOXETINE HCL 20 MG/5 ML UDCUP PO SCH (09:43)
[2018-09-10] MEDS: FAMOTIDINE INJ/PF 20 MG/2 ML SDV IV SCH ×2 (09:44→23:21)
[2018-09-10] MEDS: INSULIN LISPRO 100 UNIT/ML 3 ML VIAL SUBCUT PRN ×4 (10:13→23:37)
--- NOTE | 2018-09-10 15:01 | RADIOLOGY REPORT (SQ) ---
EXAM DESCRIPTION: VENOUS UNILATERAL LOWER COMPLETED DATE/TIME: 09/10/2018 2:51 pm REASON FOR STUDY: bilateral LE edema COMPARISON: None. TECHNIQUE: Dynamic and static trevino scale and color images acquired of both lower extremity venous sy stems. Selected spectral images acquired with additional compression and augmentation maneuvers. Imag es stored on PACS. LIMITATIONS: None. FINDINGS: RIGHT LEG COMMON FEMORAL AND FEMORAL: Normal phasicity, compression and augmentation. No visualized echogenic m aterial on trevino scale. No defects on color images. POPLITEAL: Normal compression and augmentation. No visualized echogenic material on trevino scale. No de fects on color images. CALF VESSELS: Normal compression and augmentation. No visualized echogenic material on trevino scale. No defects on color image. GSV AND SSV: Normal compression. No visualized echogenic material on trevino scale. No defects on color images. ANY DEEP VENOUS INSUFFICIENCY: No reflux on Valsalva ANY EVIDENCE OF POPLITEAL CYST: No. OTHER: No other significant finding. LEFT LEG COMMON FEMORAL AND FEMORAL: Normal phasicity, compression and augmentation. No visualized echogenic m aterial on trevino scale. No defects on color images. POPLITEAL: Normal compression and augmentation. No visualized echogenic material on trevino scale. No de fects on color images. CALF VESSELS: Normal compression and augmentation. No visualized echogenic material on trevino scale. No defects on color images. GSV AND SSV: Normal compression. No visualized echogenic material on trevino scale. No defects on color images. ANY DEEP VENOUS INSUFFICIENCY: No reflux on Valsalva ANY EVIDENCE POPLITEAL CYST: No. OTHER: No other significant finding. IMPRESSION: NO EVIDENCE DVT OR SVT IN EITHER LEG. TECHNICAL DOCUMENTATION: JOB ID: [id number] [employer]- All Rights Reserved Reading location - IP/workstation name: [email or web address]
[2018-09-10] MEDS: VANCOMYCIN HCL 1,250 MG in DEXTROSE 5%-WATER 250 ML IV SCH (18:00)
--- NOTE | 2018-09-10 18:00 | PDOC PROGRESS REPORT ---
Subjective Progress Note for:: 09/10/18 Subjective:: No adverse events overnight. Vital signs been stable. His blood sugars have been running high despite being on Lantus and a sliding scale. Blood pressure remains good off any pressors. Reason For Visit: SEPTIC SHOCK Physical Exam Vital Signs: Temp Pulse Resp BP Pulse Ox 97.5 F 80 12 136/62 H 93 09/10/18 15:00 09/10/18 15:00 09/10/18 15:00 09/10/18 15:00 09/10/18 15:00 Intake & Output 09/09/18 09/10/18 09/11/18 06:59 06:59 06:59 Intake Total 3244 500 450 Output Total 3995 4585 725 Balance -290 -6546 -510 Weight 165.5 kg 162.5 kg General appearance: PRESENT: no acute distress, morbidly obese, speech is dysarthric Respiratory exam: PRESENT: accessory muscle use - With deep inspiration and exertion, decreased breath sounds - Bilaterally but he had poor inspiratory effort., symmetrical Cardiovascular exam: PRESENT: +S1, +S2, regular rate and rhythm Pulses: PRESENT: +1 pedal pulses bilateral GI/Abdominal exam: PRESENT: normal bowel sounds, soft, other - Obese abdomen. ABSENT: distended, guarding, tenderness Extremities exam: PRESENT: other - Bilateral lower extremity 3+ edema up to mid marvin Neurological exam: PRESENT: alert, awake, oriented to person, oriented to place , oriented to time, oriented to situation, CN II-XII grossly intact Skin exam: PRESENT: dry, erythema - Bilateral lower extremity erythema-improving , warm, other - Skin open wounds noted on both lower extremity-right worse than left, his sacrum and buttocks are covered in a large pressure sore with a horrific odor that has some oozing of blood with some of the devitalized tissue has come off but he also has areas of what appear to be a superficial eschar without any substantial surrounding erythema Results Laboratory Results: 09/09/18 08:05 09/10/18 05:52 09/10/18 09/10/18 00:15 05:52 Sodium 134.0 L 136.8 L Potassium 3.5 L 3.4 L Chloride 92 L 93 L Carbon Dioxide 25 25 Anion Gap 17 19 BUN 79 H 78 H Creatinine 2.50 H 2.52 H Est GFR ( Amer) 32 L 31 L Est GFR (Non-Af Amer) 26 L 26 L Glucose 236 H 216 H Calcium 7.6 L 7.8 L Magnesium 3.2 H 09/07/18 09/08/18 09/08/18 23:54 06:05 09:18 Troponin I 0.014 0.015 0.015 NT-Pro-B Natriuret Pep 1600 H 09/08/18 09/08/18 12:45 15:06 Troponin I 0.014 < 0.012 NT-Pro-B Natriuret Pep Impressions: Abdomen/Pelvis CT 09/07/18 00:00 IMPRESSION: 1.2 cm calcification in the bladder. Blake catheter in situ. Correlate with urinalysis to exclude UTI. Otherwise no acute abnormal findings in the abdomen or pelvis. Chest X-Ray 09/08/18 10:57 IMPRESSION: Central venous access catheter via left subclavian approach. Tip is in the IJ and not seen on the chest radiograph. Venous Doppler Study 09/10/18 00:00 IMPRESSION: NO EVIDENCE DVT OR SVT IN EITHER LEG. Assessment & Plan - Diagnosis (1) Sepsis Qualifiers: Sepsis type: sepsis due to unspecified organism Qualified Code(s): A41.9 - Sepsis, unspecified organism Is this a current diagnosis for this admission?: Yes Plan: He continues on IV antibiotics for the time being. He is off pressors. (2) Lower extremity cellulitis Qualifiers: Laterality: unspecified laterality Qualified Code(s): L03.119 - Cellulitis of unspecified part of limb Is this a current diagnosis for this admission?: Yes Plan: This is actually a bilateral lower extremity cellulitis with multiple areas of wounds on the lower extremities. He continues on IV antibiotics. He is getting local wound care. (3) Pressure injury of sacral region, stage 3 Is this a current diagnosis for this admission?: Yes Plan: I do not know because I did not see him when he was admitted, but this had to be present on admission. He apparently spends all of his time in a reclining chair, and by the report I heard, it was covered in urine and feces in the reason he came to the ER was because he had fallen out of the chair and his could not get him back into it. I am certain that the wound on his bottom has been there for a very long time. We are trying to offload him and turn him every couple of hours to try to relieve pressure on it. It did not appear to be infected, but he is on IV antibiotics for his legs in case it is. I do not think he is going to be able to return home after this hospitalization. I believe he will at the very least need half-way facility placement, for rehab if nothing else. (4) Diabetes mellitus type 2 in obese Is this a current diagnosis for this admission?: Yes Plan: I have gone up on his Lantus. (5) Acute kidney injury Is this a current diagnosis for this admission?: Yes Plan: I suspect this is acute on chronic. I am not sure what his baseline is but it may be somewhere around 2. His creatinine is plateaued today. - Time Time Spent with patient: 35 or more minutes
[2018-09-10] MEDS ORDERED: INSULIN GLARGINE,HUM.REC.ANLOG 300 UNIT/3 ML INSULN.PEN SUBCUT SCH (22:00)
[2018-09-10] MEDS: ATORVASTATIN CALCIUM 10 MG TABLET PO SCH (23:21)
[2018-09-11 00:27] LABS: ANION GAP 13 (5-19); BLOOD UREA NITROGEN 70 mg/dL (7-20); CARBON DIOXIDE 27 mmol/L (22-30); CHLORIDE 93 mmol/L (98-107); GLUCOSE 330 mg/dL (75-110); POTASSIUM 3.8 mmol/L (3.6-5.0); SODIUM 133.4 mmol/L (137-145)
[2018-09-11] MEDS: OXYCODONE-ACETAMINOPHEN 5-325 MG TABLET PO PRN ×2 (00:50→12:14)
[2018-09-11] MEDS: PIPERACILLIN SODIUM/TAZOBACTAM 2.25 GM in NORMAL SALINE 50 ML IV SCH ×3 (05:08→18:51)
[2018-09-11] MEDS: HEPARIN SOD (PORCINE) 5,000 UNIT/ML 1 ML SYRINGE SUBCUT SCH ×3 (06:10→21:47)
[2018-09-11] MEDS: FAMOTIDINE INJ/PF 20 MG/2 ML SDV IV SCH ×2 (14:30→21:49)
[2018-09-11] MEDS: INSULIN GLARGINE,HUM.REC.ANLOG 300 UNIT/3 ML INSULN.PEN SUBCUT SCH ×2 (14:30→21:49)
[2018-09-11] MEDS ORDERED: FENTANYL CITRATE INJ/PF 100 MCG/2 ML AMPUL ONE (14:43)
[2018-09-11] MEDS ORDERED: MIDAZOLAM 2 MG/2 ML INJ ONE (14:43)
[2018-09-11] MEDS ORDERED: PROPOFOL INJ 200 MG/20 ML VIAL IV ONE ×2 (14:43→15:32)
[2018-09-11] MEDS ORDERED: LIDOCAINE 2% INJ-PF (20 MG/ML) 2 ML AMPUL ONE (15:08)
[2018-09-11] MEDS ORDERED: PROMETHAZINE HCL INJ 25 MG/1 ML VIAL IV PRN (15:26)
[2018-09-11] MEDS ORDERED: FENTANYL CITRATE INJ/PF 100 MCG/2 ML AMPUL IV PRN ×3 (15:26)
[2018-09-11] MEDS ORDERED: MEPERIDINE HCL/PF INJ 25 MG/1 ML DISP.SYRIN IV PRN (15:26)
[2018-09-11] MEDS ORDERED: DIPHENHYDRAMINE HCL 50 MG/ML VIAL IV PRN (15:26)
[2018-09-11] MEDS ORDERED: LIDOCAINE 0.5% INJ-PF (5 MG/ML) 50 ML SDV ONE (15:34)
[2018-09-11] MEDS: POTASSIUM CHLORIDE 20 MEQ/15 ML UDCUP PO SCH ×2 (17:30→18:51)
[2018-09-11] MEDS: DOCUSATE SODIUM 100 MG CAPSULE PO SCH ×2 (17:33→18:57)
[2018-09-11] MEDS: DILTIAZEM HCL 60 MG TABLET PO SCH ×2 (17:33→21:47)
[2018-09-11] MEDS: FLUOXETINE HCL 20 MG/5 ML UDCUP PO SCH (17:35)
[2018-09-11] MEDS: PREDNISONE 20 MG TABLET PO SCH (17:35)
[2018-09-11 18:30] LABS: ANION GAP 12 (5-19); BLOOD UREA NITROGEN 64 mg/dL (7-20); CARBON DIOXIDE 27 mmol/L (22-30); CHLORIDE 97 mmol/L (98-107); GLUCOSE 307 mg/dL (75-110); POTASSIUM 3.5 mmol/L (3.6-5.0); SODIUM 136.1 mmol/L (137-145)
--- NOTE | 2018-09-11 18:43 | PDOC PROGRESS REPORT ---
Subjective Progress Note for:: 09/11/18 Subjective:: No adverse events overnight. No new complaints. Vital signs been stable. Urine output continues to be good. He has been n.p.o. in anticipation that he may a debridement of his buttocks wound today. Reason For Visit: SEPTIC SHOCK Physical Exam Vital Signs: Temp Pulse Resp BP Pulse Ox 97.6 F 80 14 137/69 H 100 09/11/18 17:08 09/11/18 17:08 09/11/18 17:56 09/11/18 17:56 09/11/18 17:56 Intake & Output 09/10/18 09/11/18 09/12/18 06:59 06:59 06:59 Intake Total 500 1370 400 Output Total 4585 5 1025 Balance -1267 -477 -722 Weight 162.5 kg 163.7 kg General appearance: PRESENT: no acute distress, morbidly obese, speech is dysarthric Respiratory exam: PRESENT: accessory muscle use - With deep inspiration and exertion, decreased breath sounds - Bilaterally but he had poor inspiratory effort., symmetrical Cardiovascular exam: PRESENT: +S1, +S2, regular rate and rhythm Pulses: PRESENT: +1 pedal pulses bilateral GI/Abdominal exam: PRESENT: normal bowel sounds, soft, other - Obese abdomen. ABSENT: distended, guarding, tenderness Extremities exam: PRESENT: other - Bilateral lower extremity 3+ edema up to mid marvin Neurological exam: PRESENT: alert, awake, oriented to person, oriented to place , oriented to time, oriented to situation, CN II-XII grossly intact Skin exam: PRESENT: dry, erythema - Bilateral lower extremity erythema-improving , warm, other - Skin open wounds noted on both lower extremity-right worse than left, his sacrum and buttocks are covered in a large pressure sore with a horrific odor that has some oozing of blood with some of the devitalized tissue has come off but he also has areas of what appear to be a superficial eschar without any substantial surrounding erythema Results Laboratory Results: 09/09/18 08:05 09/11/18 17:35 09/10/18 09/11/18 23:45 17:35 Sodium 133.4 L 136.1 L Potassium 3.8 3.5 L Chloride 93 L 97 L Carbon Dioxide 27 27 Anion Gap 13 12 BUN 70 H 64 H Creatinine 2.18 H 2.04 H Est GFR ( Amer) 37 L 40 L Est GFR (Non-Af Amer) 31 L 33 L Glucose 330 H 307 H Calcium 8.0 L 8.0 L 09/07/18 09/08/18 09/08/18 23:54 06:05 09:18 Troponin I 0.014 0.015 0.015 NT-Pro-B Natriuret Pep 1600 H 09/08/18 09/08/18 12:45 15:06 Troponin I 0.014 < 0.012 NT-Pro-B Natriuret Pep Impressions: Abdomen/Pelvis CT 09/07/18 00:00 IMPRESSION: 1.2 cm calcification in the bladder. Blake catheter in situ. Correlate with urinalysis to exclude UTI. Otherwise no acute abnormal findings in the abdomen or pelvis. Chest X-Ray 09/08/18 10:57 IMPRESSION: Central venous access catheter via left subclavian approach. Tip is in the IJ and not seen on the chest radiograph. Venous Doppler Study 09/10/18 00:00 IMPRESSION: NO EVIDENCE DVT OR SVT IN EITHER LEG. Assessment & Plan - Diagnosis (1) Sepsis Qualifiers: Sepsis type: sepsis due to unspecified organism Qualified Code(s): A41.9 - Sepsis, unspecified organism Is this a current diagnosis for this admission?: Yes Plan: He continues on IV antibiotics for the time being. He is off pressors. (2) Lower extremity cellulitis Qualifiers: Laterality: unspecified laterality Qualified Code(s): L03.119 - Cellulitis of unspecified part of limb Is this a current diagnosis for this admission?: Yes Plan: This is actually a bilateral lower extremity cellulitis with multiple areas of wounds on the lower extremities. He continues on IV antibiotics. He is getting local wound care. (3) Pressure injury of sacral region, stage 3 Is this a current diagnosis for this admission?: Yes Plan: I do not know because I did not see him when he was admitted, but this had to be present on admission. He apparently spends all of his time in a reclining chair, and by the report I heard, it was covered in urine and feces in the reason he came to the ER was because he had fallen out of the chair and his could not get him back into it. I am certain that the wound on his bottom has been there for a very long time. We are trying to offload him and turn him every couple of hours to try to relieve pressure on it. It did not appear to be infected, but he is on IV antibiotics for his legs in case it is. I do not think he is going to be able to return home after this hospitalization. I believe he will at the very least need correction facility placement, for rehab if nothing else. (4) Diabetes mellitus type 2 in obese Is this a current diagnosis for this admission?: Yes Plan: I have gone up on his Lantus again, increasing it to twice daily. (5) Acute kidney injury Is this a current diagnosis for this admission?: Yes Plan: I suspect this is acute on chronic. I am not sure what his baseline is but it may be somewhere around 2. His creatinine made another improvement today. - Time Time Spent with patient: 25-34 minutes
[2018-09-11] MEDS: VANCOMYCIN HCL 1,250 MG in DEXTROSE 5%-WATER 250 ML IV SCH (18:50)
[2018-09-11] MEDS: INSULIN LISPRO 100 UNIT/ML 3 ML VIAL SUBCUT PRN (18:50)
[2018-09-11 19:25] LABS: VANCOMYCIN,TROUGH 16.5 ug/mL (5.0-20.0)
--- NOTE | 2018-09-11 21:48 | XCELERA REPORT ---
[address] [address] Transthoracic Echocardiogram Report Name: MARY MEDINA Age: 63 yrs Gender: Male : 1955 Patient Status: Inpatient Patient Location: ICU^[facility]^A Study Date: 09/10/2018 11:44 AM Height: 75 in Weight: 396 lb BSA: 2.9 m2 Procedure: A two-dimensional transthoracic echocardiogram with color flow and Doppler was performed. Study Quality: Poor. The study was technically difficult with many images being suboptimal in quality. Images were not obtained from all of the standard acoustic windows due to the limited scope of the study. Reason For Study: Lower extremity edema History: Lower extremity edema. Ordering Physician: DARIN LEVINE Performed By: Anca Braga Interpretation Summary No True apical 2 chamber views obtained.Hence cannot comment on the apical anterior , the basal anterior, the basal inferior and apical inferior cheema.The mid anterior , the mid inferior and the rest of the LV cheema contract normally. .Normal LVEF is normal and is greater thn 60% in the limited views.Cannot comment on LVH. LV diastolic function could not be adequately assessed. Right atrium not well visualized secondary to technical limitations The left atrium is not well visualized secondary to technical limitations Cannot comment on Mitral, Tricuspid and pulmonic valves.Also poor subcostal views. MMode/2D Measurements & Calculations RVDd: 4.2 cm LVIDd: 5.7 cm FS: 44.5 % Ao root diam: 3.2 cm IVSd: 0.97 cm LVIDs: 3.2 cm EDV(Teich): 160.1 ml Ao root area: 7.8 cm2 LVPWd: 0.94 cm ESV(Teich): 39.9 ml LA dimension: 3.7 cm EF(Teich): 75.1 % Doppler Measurements & Calculations MV E max mariola: MV P1/2t max mariola: Ao V2 max: LV V1 max P.5 cm/sec 86.1 cm/sec 148.9 cm/sec 6.3 mmHg MV A max mariola: MV P1/2t: 95.5 msec Ao max PG: LV V1 max: 87.7 cm/sec MVA(P1/2t): 2.3 cm2 8.9 mmHg 125.9 cm/sec MV E/A: 0.97 MV dec slope: 264.1 cm/sec2 MV dec time: 0.33 sec PA V2 max: MV P1/2t-pr_phl: 132.7 cm/sec 95.5 msec PA max P.0 mmHg Left Ventricle The left ventricle is grossly normal size. No True apical 2 chamber views obtained.Hence cannot comment on the apical anterior , the basal anterior, the basal inferior and apical inferior cheema.The mid anterior , the mid inferior and the rest of the LV cheema contract normally. .Normal LVEF is normal and is greater thn 60% in the limited views.Cannot comment on LVH. LV diastolic function could not be adequately assessed. Right Ventricle The right ventricle is not well visualized secondary to technical limitations. Atria Right atrium not well visualized secondary to technical limitations. The left atrium is not well visualized secondary to technical limitations. Mitral Valve Cannot comment on Mitral, Tricuspid and pulmonic valves.Also poor subcostal views. Aortic Valve There is no aortic valve stenosis. No aortic regurgitation is present. : DARIN LEVINE > Theresa Reyes
[2018-09-11] MEDS: ATORVASTATIN CALCIUM 10 MG TABLET PO SCH (22:10)
[2018-09-12] MEDS: PIPERACILLIN SODIUM/TAZOBACTAM 2.25 GM in NORMAL SALINE 50 ML IV SCH ×2 (00:10→05:36)
[2018-09-12] MEDS: MORPHINE SULFATE 10 MG/ML INJ IV PRN ×3 (01:38→14:50)
--- NOTE | 2018-09-12 04:27 | OPERATIVE REPORT E ---
Operative Report NAME: MARY MEDINA : 1955 AGE: 63Y DATE OF SURGERY: 09/11/2018 ROOM: 610 PREOPERATIVE DIAGNOSIS: DECUBITUS ULCERS OF THE SACRUM, RIGHT LOWER LEG, RIGHT FOOT, AND LEFT ANKLE AREA. POSTOPERATIVE DIAGNOSIS: DECUBITUS ULCERS OF THE SACRUM, RIGHT LOWER LEG, RIGHT FOOT, AND LEFT ANKLE AREA. OPERATION: Debridement of stage 2-3 decubitus ulcers of the sacrum 16 x 10 cm, right lower leg lateral area 9 x 6 cm, right ankle area 5 x 5 cm, and the right lateral foot 4 x 4 cm, and the left anterior ankle about 5 x 5 cm. SURGEON: KOLE ELY M.D. ANESTHESIA: Local/MAC. INDICATION: This is a 63-year-old male who was admitted for sepsis and practically bedridden, noted to have decubitus changes along the sacral area, the right lower leg and foot, and the left ankle area. Both legs are reddish and swollen. DESCRIPTION OF PROCEDURE: The patient was given IV sedation and subsequently the patient was placed in a left lateral decubitus position. The sacral decubitus areas as well as the right lower leg and foot were then prepped and draped in the usual sterile fashion. Local anesthesia infiltrated around the sacral area and sharp dissection was used with a knife. A 15- and 11-blade were used to debride the necrotic skin down to the subcutaneous area, roughly measuring about 16 x 10 cm. Hemostasis controlled with cautery. Next, the right lower leg was then debrided. There was a small amount of purulent material that was cultured. The skin also debrided to the subcutaneous area. Local anesthesia infiltrated and hemostasis controlled with cautery. This roughly measured about 9 x 6 cm. The right ankle area roughly measures about 5 x 5 cm, and this was also sharply debrided, primarily necrotic skin down to the subcutaneous area. The right foot lateral area close to the mid plantar area was subsequently debrided sharply. This roughly measured about 4 x 4 cm. Hemostasis was controlled with cautery. Next, the left ankle area was then prepped and draped in the usual sterile fashion. The ulceration roughly measured about 5 x 5 cm. The skin was primarily excised sharply with a 15-blade down close to the subcutaneous area. Again, hemostasis was controlled with cautery. Sterile Xeroform gauze will be placed on top of all the wounds and dressed with 4 x 4's. The patient tolerated the procedure well. The patient then brought back to recovery room in satisfactory condition. DICTATING PHYSICIAN: KOLE LEY M.D. [id number] PHY#: [id number] ID: [id number] JOB#: [id number] ACCT: [id number] cc:KOLE ELY M.D. >
[2018-09-12] MEDS: INSULIN LISPRO 100 UNIT/ML 3 ML VIAL SUBCUT PRN ×2 (06:15→12:13)
[2018-09-12] MEDS: HEPARIN SOD (PORCINE) 5,000 UNIT/ML 1 ML SYRINGE SUBCUT SCH ×2 (06:28→14:44)
[2018-09-12] MEDS: PREDNISONE 20 MG TABLET PO SCH (08:02)
[2018-09-12] MEDS: FAMOTIDINE INJ/PF 20 MG/2 ML SDV IV SCH (09:42)
[2018-09-12] MEDS: DILTIAZEM HCL 60 MG TABLET PO SCH (09:42)
[2018-09-12] MEDS: FLUOXETINE HCL 20 MG/5 ML UDCUP PO SCH (09:43)
[2018-09-12] MEDS: DOCUSATE SODIUM 100 MG CAPSULE PO SCH (09:43)
[2018-09-12] MEDS: INSULIN GLARGINE,HUM.REC.ANLOG 300 UNIT/3 ML INSULN.PEN SUBCUT SCH (09:43)
--- NOTE | 2018-09-12 10:45 | PDOC TRANSFER SUMMARY ---
General Admission Date/PCP: 09/07/18 17:13 NOAM MENDEZ NP Transfer Date: 09/12/18 Accepting Facility: Other (Comments) - LTAC in [facility] Resuscitation Status: Full Code - Transfer Diagnosis (1) Sepsis Is this a current diagnosis for this admission?: Yes Diagnosis Summary: From bilateral lower extremity cellulitis. Blood cultures were negative. He is responded well to empiric antibiotics and IV fluid administration. (2) Lower extremity cellulitis Is this a current diagnosis for this admission?: Yes Diagnosis Summary: Patient responded well to empiric antibiotic therapy. Nothing has grown out of his cultures. He has been getting local wound care to the wounds on his lower extremities. (3) Pressure injury of sacral region, stage 3 Is this a current diagnosis for this admission?: Yes Diagnosis Summary: He went to the OR yesterday for debridement. He is getting local wound care per surgery. Cultures at this time show what appear to be 2 different strains of gram-negative organism. This wound was present on admission. He apparently sits in a reclining chair all day and was reportedly soiling himself in the chair because he either would not or could not get out of it to get to the bathroom. (4) Diabetes mellitus type 2 in obese Is this a current diagnosis for this admission?: Yes Diagnosis Summary: We have covered him with Lantus and a sliding scale. I have gone up on his Lantus twice and is now getting it twice a day. He may require a fixed dose of rapid acting insulin plus his sliding scale to better control his blood sugars. He is also on chronic daily prednisone, and the patient is a poor historian and so looked extensively through the chart to try to find a clue as to why he is on prednisone. 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 If the decision is made to take him off of prednisone, he is going to have to be tapered over a long period of time. (5) Acute kidney injury Is this a current diagnosis for this admission?: Yes Diagnosis Summary: This has improved with IV fluids. His urine output has been good. We do not know what his baseline creatinine is, but I suspect it may be somewhere around 1.7-2. - Transfer Medications Home Medications: Diltiazem HCl [Cardizem 60 mg Tablet] 60 mg PO Q12 09/07/18 Ergocalciferol (Vitamin D2) [Drisdol 50,000 unit (1.25MG) Capsule] 50,000 unit PO MO@0800 09/07/18 Fluoxetine HCl [Prozac] 10 mg PO DAILY 09/07/18 Furosemide [Lasix 40 mg Tablet] 40 mg PO DAILY 09/07/18 Gabapentin [Neurontin 300 mg Capsule] 300 mg PO Q8 09/07/18 Glipizide [Glucotrol 5 mg Tablet] 5 mg PO BIDACBS 09/07/18 Hydrocodone Bit/Acetaminophen [Hydrocodon-Acetaminophen 5-325] 1 tab PO Q6HP PRN 09/07/18 Insulin Glargine,Hum.rec.anlog [Lantus Insulin 100 Unit/mL] 32 units SQ DAILY Linagliptin [Tradjenta] 5 mg PO DAILY 09/07/18 Pravastatin Sodium [Pravachol] 40 mg PO DAILY 09/07/18 Prednisone [Deltasone 20 mg Tablet] 20 mg PO [id number] 09/07/18 Ramipril [Altace 10 mg Capsule] 10 mg PO DAILY 09/07/18 Transfer Medications: Current Medications Acetaminophen (Tylenol 325 Mg Tablet) 650 mg PO Q4HP PRN PRN Reason: FEVER >101 Stop: 10/07/18 17:40 Albuterol/Ipratropium (Duoneb 3 Ml Ampul) 3 ml NEB RTQ4HP PRN PRN Reason: SHORTNESS OF BREATH Stop: 10/07/18 17:56 Atorvastatin Calcium (Lipitor 10 Mg Tablet) 10 mg PO QHS TRISTEN Stop: 10/08/18 21:59 Last Admin: 09/11/18 22:10 Dose: 10 mg Dextrose (Dextrose Inj 50% Syringe (25 Gm/50 Ml)) 12.5 gm IV PRN PRN; Protocol PRN Reason: FOR BG 50-69 IN ALERT PATIENT Stop: 10/07/18 18:24 Dextrose (Dextrose Inj 50% Syringe (25 Gm/50 Ml)) 25 gm IV PRN PRN; Protocol PRN Reason: PER PROTOCOL Stop: 10/07/18 18:24 Diltiazem HCl (Cardizem 60 Mg Tablet) 60 mg PO Q12 [facility]1983 Stop: 10/09/18 21:59 Last Admin: 09/12/18 09:42 Dose: 60 mg Docusate Sodium (Colace 100 Mg Capsule) 100 mg PO BID [facility]1983 Stop: 10/07/18 17:59 Last Admin: 09/12/18 09:43 Dose: 100 mg Famotidine (Pepcid Inj/Pf 20 Mg/2 Ml Sdv) 20 mg IV Q12 [facility]1983 Stop: 10/07/18 21:59 Last Admin: 09/12/18 09:42 Dose: 20 mg Fluoxetine HCl (Prozac Soln 20 Mg/5 Ml Udcup) 10 mg PO DAILY [facility]1983 Stop: 10/08/18 09:59 Last Admin: 09/12/18 09:43 Dose: 10 mg Glucagon (Glucagen Inj 1 Mg Vial) 1 mg IM PRN PRN; Protocol PRN Reason: Evaluate for BG < 70 Stop: 10/07/18 18:24 Glucose (Glutose 40% Gel 15 Gm Tube) 15 gm PO PRN PRN; Protocol PRN Reason: FOR BG 50-69 IN ALERT PATIENT Stop: 10/07/18 18:24 Glucose (Glutose 40% Gel 15 Gm Tube) 30 gm PO PRN PRN; Protocol PRN Reason: FOR BG < 50 IN ALERT PATIENT Stop: 10/07/18 18:24 Heparin Sodium (Porcine) (Heparin Inj 5,000 Units/Ml 1 Ml Syringe) 5,000 unit SUBCUT Q8 [facility]1983 Stop: 10/07/18 21:59 Last Admin: 09/12/18 06:28 Dose: 5,000 unit Heparin Sodium (Porcine) (Heparin Flush 10 Unit/Ml 5 Ml Disp.Syrg) 30 unit IV Q8 [facility]1983 Stop: 10/08/18 13:59 Last Admin: 09/12/18 05:36 Dose: 30 unit Heparin Sodium (Porcine) (Heparin Flush 10 Unit/Ml 5 Ml Disp.Syrg) 30 unit IV .AFTER EACH USE PRN PRN Reason: AFTER EACH INTERMITTENT USE Stop: 10/08/18 12:46 Last Admin: 09/11/18 18:57 Dose: 30 unit Vancomycin HCl 1,250 mg/ (Dextrose) 250 mls @ 166.667 mls/hr IV DAILY@1900 [facility]1983 Stop: 09/15/18 18:59 Last Infusion: 09/12/18 08:03 Dose: Infused Piperacillin Sod/Tazobactam (Sod 3.375 gm/ Sodium Chloride) 100 mls @ 200 mls/ hr IV Q6 [facility]1983 Stop: 09/15/18 11:59 Insulin Glargine (Lantus Insulin Inj 300 Unit/3 Ml Pen) 25 unit SUBCUT Q12 [facility]1983 Stop: 10/11/18 10:59 Last Admin: 09/12/18 09:43 Dose: 25 units Insulin Human Lispro (Humalog Insulin 100 Unit/1 Ml 3 Ml Vial) 0 - 12 unit SUBCUT ACHSP PRN; Protocol PRN Reason: PER PROTOCOL Stop: 10/07/18 18:24 Last Admin: 09/12/18 06:15 Dose: 6 unit Morphine Sulfate (Morphine 10 Mg/Ml Inj) 4 mg IV Q4HP PRN PRN Reason: FOR PAIN Stop: 09/18/18 18:19 Last Admin: 09/12/18 06:24 Dose: 4 mg Ondansetron HCl (Zofran Inj/Pf 4 Mg/2 Ml Sdv) 4 mg IV Q6HP PRN PRN Reason: FOR NAUSEA/VOMITING Stop: 10/07/18 17:47 Oxycodone/Acetaminophen (Percocet 5-325 Mg Tablet) 1 tab PO Q6HP PRN PRN Reason: FOR PAIN SCALE 3-5 Stop: 09/16/18 18:02 Last Admin: 09/11/18 12:14 Dose: 1 tab Prednisone (Deltasone 20 Mg Tablet) 20 mg PO WBRKFST [facility]1983 Stop: 10/08/18 08:59 Last Admin: 09/12/18 08:02 Dose: 20 mg Sodium Chloride (Saline Flush 2.5 Ml Monoject Prefil Syrin) 2.5 ml IV Q8 [facility]1983 Stop: 10/07/18 21:59 Last Admin: 09/12/18 05:42 Dose: 2.5 ml - Allergies Allergies/Adverse Reactions: No Known Allergies Allergy (Verified 09/07/18 17:58) - Diet/Activity Discharge Diet: Diabetic Discharge Activity: Bedrest - This is been his current level of activity, he has not been to a point where we could start having him evaluated by physical therapy. Hospital Course Hospital Course: He was admitted after having been down in the floor at his home for an undetermined period of time because his could not help him get back in his chair which he apparently spends nearly all of his time in. By report, the chair was covered in urine and feces. When the patient presented, he had what looked like obvious cellulitis related to chronic wounds in his lower extremities, and he was septic on admission and was admitted to the intensive care unit. He responded well to IV fluids and antibiotics, and his creatinine trended back down to what we think is somewhere near his normal range. The patient himself is a very poor historian, and unfortunately his is a poor historian as well. He was getting local wound care to the wounds on his lower extremities, and required a bed bath a couple of times a day for several days to get him fully cleaned up. He was also noted to have a very large foul- smelling buttocks and sacral pressure sore, and he underwent operative debridement yesterday. Material was obtained for culture and those results are pending at this time. None of his blood or wound cultures have ever come back positive. He continues on empiric antibiotics as he has shown a good response. He was evaluated for LTAC on the basis of his large wound burden and the plan is that he will be transferred there later today. Physical Exam Vital Signs: Temp Pulse Resp BP Pulse Ox 97.7 F 81 12 132/78 H 92 09/12/18 08:00 09/12/18 07:38 09/12/18 10:00 09/12/18 09:56 09/12/18 10:00 Intake & Output 09/11/18 09/12/18 09/13/18 06:59 06:59 06:59 Intake Total 1370 500 480 Output Total 2024 2024 300 Balance -655 -1525 180 Weight 163.7 kg 164.3 kg General appearance: PRESENT: no acute distress, morbidly obese, speech is dysarthric Respiratory exam: PRESENT: accessory muscle use - With deep inspiration and exertion, decreased breath sounds - Bilaterally but he had poor inspiratory effort., symmetrical Cardiovascular exam: PRESENT: +S1, +S2, regular rate and rhythm Pulses: PRESENT: +1 pedal pulses bilateral GI/Abdominal exam: PRESENT: normal bowel sounds, soft, other - Obese abdomen. ABSENT: distended, guarding, tenderness Extremities exam: PRESENT: other - Bilateral lower extremity 3+ edema up to mid marvin Neurological exam: PRESENT: alert, awake, oriented to person, oriented to place , oriented to time, oriented to situation, CN II-XII grossly intact Skin exam: PRESENT: dry, erythema - Bilateral lower extremity erythema-improving , warm, other - Skin open wounds noted on both lower extremity-right worse than left, his sacrum and buttocks are covered in a large pressure sore which is now cleanly dressed Results Laboratory Results: 09/09/18 08:05 09/11/18 17:35 09/11/18 17:35 Sodium 136.1 L Potassium 3.5 L Chloride 97 L Carbon Dioxide 27 Anion Gap 12 BUN 64 H Creatinine 2.04 H Est GFR ( Amer) 40 L Est GFR (Non-Af Amer) 33 L Glucose 307 H Calcium 8.0 L 09/07/18 09/08/18 09/08/18 23:54 06:05 09:18 Troponin I 0.014 0.015 0.015 NT-Pro-B Natriuret Pep 1600 H 09/08/18 09/08/18 12:45 15:06 Troponin I 0.014 < 0.012 NT-Pro-B Natriuret Pep Impressions: Abdomen/Pelvis CT 09/07/18 00:00 IMPRESSION: 1.2 cm calcification in the bladder. Blake catheter in situ. Correlate with urinalysis to exclude UTI. Otherwise no acute abnormal findings in the abdomen or pelvis. Chest X-Ray 09/08/18 10:57 IMPRESSION: Central venous access catheter via left subclavian approach. Tip is in the IJ and not seen on the chest radiograph. Venous Doppler Study 09/10/18 00:00 IMPRESSION: NO EVIDENCE DVT OR SVT IN EITHER LEG.
[2018-09-12] MEDS ORDERED: PIPERACILLIN SODIUM/TAZOBACTAM 3.375 GM in NORMAL SALINE 100 ML IV SCH (12:00)
[2018-09-12 15:02] VITALS: BP 129/73
--- NOTE | 2018-09-19 21:37 | OPERATIVE REPORT E ---
Operative Report NAME: MARY MEDINA : 1955 AGE: 63Y DATE OF SURGERY: 09/08/2018 ROOM: [facility] PREOPERATIVE DIAGNOSIS: POOR VEINS FOR IV ACCESS. PATIENT NEEDED CENTRAL LINE FOR PRESSORS. POSTOPERATIVE DIAGNOSIS: POOR VEINS FOR IV ACCESS. PATIENT NEEDED CENTRAL LINE FOR PRESSORS. OPERATION: Placement of left internal jugular triple-lumen catheter under ultrasound guidance. SURGEON: KOLE ELY M.D. ANESTHESIA: Local. PROCEDURE: Patient was placed in slight Trendelenburg position. The left neck was then prepped and draped in the usual sterile fashion. With the use of the ultrasound, the left internal jugular vein was then identified. Patient had a very short neck and had some hair around the area, actually a long ramos. Local anesthesia was infiltrated over the skin, where the internal jugular vein was identified. A needle was then inserted towards the area of the internal jugular vein, and the vein was subsequently punctured and aspirated. Nonpulsatile blood, also dark blood, indicating venous blood. Next, a guidewire was then passed through the needle towards the superior vena cava. However, the needle appeared to be almost perpendicular to the neck because of the patient having a very short neck and very difficult to find a good area to place the needle in a real 60-degree angle. At any rate, a guidewire was placed and the needle was removed. The incision site was then dilated and dilator was removed and pressure applied to the puncture site. A triple-lumen catheter was inserted through the guidewire to a distance of about 15 cm. All the 3 ports aspirated blood easily and infused saline easily. Catheter was then anchored to the skin with 3-0 silk and a Bio patch placed over the incision site. A transparent dressing was then placed over the patch and guidewire. A chest x-ray as obtained several minutes later and the catheter appeared to be tracking towards the area of the internal jugular vein. I told the nurses that this catheter can be used for IV medications and fluids. The only thing it should not be used for is TPN. Patient tolerated procedure well. I left the catheter in place because of the possible difficulty of reinserting it if it gets dislodged. DICTATING PHYSICIAN: KOLE ELY M.D. [id number] PHY#: [id number] ID: [id number] JOB#: [id number] ACCT: [id number] cc:KOLE ELY M.D. >
== END 2018-09-12 15:03 | DRG 853 ==
LOC: ER 14:40 → EH 17:13 → ICU 09-08 07:46
PROVIDERS: ADMIT Internal Medicine; ATTEND Internal Medicine
PROC: 05HN33Z Insertion of Infusion Device into Left Internal Jugular Vein, Percutaneous Approach (ICD-10-PCS; 2018-09-08)
PROC: B544ZZA Ultrasonography of Left Jugular Veins, Guidance (ICD-10-PCS; 2018-09-08)
PROC: 0JBR0ZZ Excision of Left Foot Subcutaneous Tissue and Fascia, Open Approach (ICD-10-PCS; 2018-09-11)
PROC: 0JBN0ZZ Excision of Right Lower Leg Subcutaneous Tissue and Fascia, Open Approach (ICD-10-PCS; 2018-09-11)
PROC: 0JBQ0ZZ Excision of Right Foot Subcutaneous Tissue and Fascia, Open Approach (ICD-10-PCS; 2018-09-11)
PROC: 0JB70ZZ Excision of Back Subcutaneous Tissue and Fascia, Open Approach (ICD-10-PCS; principal; 2018-09-11 16:00)
DX: A41.1 Sepsis due to other specified staphylococcus (principal); L89.153 Pressure ulcer of sacral region, stage 3; L89.313 Pressure ulcer of right buttock, stage 3; R65.21 Severe sepsis with septic shock; N17.9 Acute kidney failure, unspecified; L03.116 Cellulitis of left lower limb; L03.115 Cellulitis of right lower limb; Z68.42 Body mass index [BMI] 45.0-49.9, adult; E87.1 Hypo-osmolality and hyponatremia; L89.320 Pressure ulcer of left buttock, unstageable; E86.0 Dehydration; E87.6 Hypokalemia; E66.01 Morbid (severe) obesity due to excess calories; E11.65 Type 2 diabetes mellitus with hyperglycemia; I10 Essential (primary) hypertension; E87.70 Fluid overload, unspecified; R74.8 Abnormal levels of other serum enzymes; I87.2 Venous insufficiency (chronic) (peripheral); E87.5 Hyperkalemia; Z79.4 Long term (current) use of insulin; Z79.52 Long term (current) use of systemic steroids; R46.0 Very low level of personal hygiene; Z74.01 Bed confinement status
CPT/HCPCS: 300; 36415; 71045; 74176; 80048; 80053; 80061; 80076; 80202; 81001; 82040; 82140; 82803; 82962; 83036; 83605; 83735; 83880; 84439; 84443; 84484; 85025; 85610; 87040; 87070; 87075; 87077; 87086; 87101; 87186; 87205; 88304; 88312; 93005; 93010; 93306; 93971; 94640; 96361; 96374; 96375; 99291; C1751; J1642; J1644; J1815; J1940; J2250; J2270; J2543; J2704; J3010; J3370; J3480; J3490; J7030; J7060; J7512; J7620; S0028